=== PATIENT | male | born 1985 | race Caucasian/White ===

== ENCOUNTER → 2019-05-09 | Day surgery (SDC) | payer OTHER ==
[2019-05-08 14:16] LABS: ANION GAP 16.1 mmol/L (8-16); BLOOD UREA NITROGEN 15 mg/dL (7-26); BUN/CREATININE RATIO 19 (6-25); CALCIUM 10.2 mg/dL (8.4-10.2); CARBON DIOXIDE 26 mmol/L (22-29); CHLORIDE 96 mmol/L (98-107); CREATININE, SERUM 0.77 mg/dL (0.72-1.25); EST GLOMERULAR FILTRATION RATE > 60 ML/MIN (60-); GLUCOSE 169 mg/dL (74-118); POTASSIUM 4.1 mmol/L (3.5-5.1); SODIUM 134 mmol/L (136-145)
--- NOTE | 2019-05-08 14:27 | Diagnostic Imaging Report ---
EXAMINATION: CHEST 2 VIEWS INDICATION: Pre-operative COMPARISON: None FINDINGS: LINES/TUBES:None LUNGS:The lungs are well-inflated. No focal consolidation or pulmonary edema. PLEURA:No pleural effusion or pneumothorax. MEDIASTINUM:The cardiomediastinal silhouette appears normal in size and shape. BONES/SOFT TISSUES:No acute osseous injury. ABDOMEN:No free air under the diaphragm. IMPRESSION: No focal pneumonia or pulmonary edema. Signed by: Haley Bentley MD on 05/08/2019 2:23 PM
[~2019-05-09] MED LIST: BUPIVACAINE HCL 0.5% INJ 30 ML VIAL INJ ONE; CEFAZOLIN SOD 1 GM/NS 50ML 50 ML IV ONE; DEXAMETHASONE SOD PHOS INJ 4 MG/ML VIAL ONE; FARXIGA PO; FENTANYL CITRATE/PF 100MCG/2 ML INJ ONE; GABAPENTIN400 MG PO; GLIPIZIDE5 MG PO; IBUPROFEN 800MG/ 250ML 250 ML IV ONE; INSULIN REGULAR, HUMAN 100 UNIT/1 ML 3ML VIAL ONE; KETAMINE HCL INJ 50 MG/ML 10 ML VIAL ONE; LIDOCAINE HCL 2% LOCAL INJ 5 ML SDV VIAL INJ ONE; LISINOPRIL10 MG PO; METFORMIN HCL500 MG PO; MIDAZOLAM HCL 2 MG/2 ML VIAL ONE; NOVOLOG MI100 UNIT/1 SC; OMEPRAZOLE40 MG PO; ONDANSETRON HCL INJ 2MG/ML 2ML 2 MG/ML VIAL ONE; PANTOPRAZOLE SO40 MG PO; PROPOFOL IV EMULSION 10 MG/ML 20 ML VIAL ONE; SEVOFLURANE INHAL SOLN 250 ML PEN BTL ONE; tresiba SC
--- OUTSIDE RECORDS SUMMARY | 2019-05-09 05:17 | XMS REPORT ---
Author Author [facility] Address Unknown Phone Unavailable Care Team Providers Care Carpet Measurer Name Role Phone Toi PEREYRA Unavailable Unavailable Problems This patient has no known problems. Allergies, Adverse Reactions, Alerts This patient has no known allergies or adverse reactions. Medications This patient has no known medications. Results Test Description Test Time Test Comments Text Results Atomic Results Result Comments CHEST 2 VIEWS 2019-05-08 14:21:00 [facility] [address] [address] Patient Name: CECY HERNANDEZ MR #: [id number] : 1985 Age/Sex: 33/M Req #: [id number] Adm Physician: Ordered by: RAS PEREYRA DPM Report #: [id number] Location: OR Room/Bed: Procedure: [id number] DX/CHEST 2 VIEWS Exam Date: 05/08/19 Exam Time: 1330 REPORT STATUS: Signed EXAMINATION: CHEST 2 VIEWS INDICATION: Pre-operative COMPARISON: None FINDINGS: LINES/TUBES:None LUNGS:The lungs are well-inflated. No focal consolidation or pulmonary edema. PLEURA:No pleural effusion or pneumothorax. MEDIASTINUM:The cardiomediastinal silhouette appears normal in size and shape. BONES/SOFT TISSUES:No acute osseous injury. ABDOMEN:No free air under the diaphragm. IMPRESSION: No focal pneumonia or pulmonary edema. Signed by: Argenis Garrett MD on 05/08/2019 2:23 PM Dictated By: ARGENIS GARRETT MD [id number] Transcribed By: MONIKA GAN on 05/08/19 1423 COPY TO: ARS PEREYRA DPM
[2019-05-09 09:10] VITALS: BP 120/84
--- NOTE | 2019-05-09 11:29 | Operative Report ---
DATE OF PROCEDURE: 05/09/2019 SURGEON: Nidhi Da Silva DPM PREOPERATIVE DIAGNOSES: 1. Right Charcot neuroarthropathy. 2. Dislocation of midtarsal joint. SURVEYING TEACHER: None. ANESTHESIA: General with a postoperative block consisting of 20 mL of 0.5% Marcaine plain. HEMOSTASIS: Pneumatic thigh tourniquet set at 350 mmHg for a total time of approximately 30 minutes. MATERIALS: 3-0 Vicryl, 3-0 nylon. ESTIMATED BLOOD LOSS: Less than 10 mL. PATHOLOGY: None. PROCEDURE NOTE: The patient was seen in the preoperative waiting room. The correct procedure and site were identified. The patient was brought to the operating room, placed on the operating table in supine position. General anesthesia was initiated. At this time, a well-padded pneumatic tourniquet was placed about the patient's right thigh. The right foot, ankle, and leg was then scrubbed, prepped, draped in the usual aseptic manner. The right foot, ankle, and leg was exsanguinated with an Esmarch bandage. A pneumatic thigh tourniquet was inflated to 350 mmHg for a total time of approximately 30 minutes. Attention was directed to the right foot, where a large dorsal exostosis with prominence is noted over the 1st and 2nd metatarsal cuneiform as well as a large medial prominence. Utilizing a #15 blade, a 5 cm linear incision was made directly over the 2nd metatarsal cuneiform joint. The incision was carried to subcutaneous tissue, them from deep or underlying structures. All vital neurovascular structures were identified, and retracted medially and laterally. All bleeders were cauterized or ligated as deemed necessary. The incision was carried down to the level of the dislocated middle and medial cuneiform. These were identified and dissected utilizing a #15 blade. Next, utilizing osteotome and mallet as well as a rongeur and a bone rasp, this was smoothed down to anatomic alignment and confirmed via intraoperative fluoroscopy. Next, a second incision was made over the medial aspect of the 1st metatarsal cuneiform joint. The incision was carried to subcutaneous tissue, it from deeper underling structures. All vital neurovascular structures were identified, and retracted medially and laterally. All bleeders were cauterized or ligated as deemed necessary. At this point, utilizing an osteotome and mallet rongeur and a rasp, the dorsal medial eminence of the 1st metatarsal cuneiform joint was also resected and passed off to the back table; this was confirmed via intraoperative fluoroscopy and clinically the bony prominences appeared to be reduced. The both incision sites were copiously irrigated with sterile saline. Deep tissue was reapproximated with 3-0 Vicryl, subcutaneous tissue with 3-0 Vicryl, and the skin was closed using a running interlocking stitch of 3-0 nylon. Next, incision site was dressed with Adaptic, 4x4s, Kerlix, and Unna's boot, Webril, and a 4-inch Brice wrap. The patient tolerated the procedure and anesthesia well. The patient was transferred to the postoperative recovery room with vital signs stable and vascular status intact. The patient was monitored there for a short period of time before being sent home with the following written and oral instructions. 1. Keep the dressing clean, dry, and intact. 2. The patient is to remain nonweightbearing in a CAM walker boot to avoid any ambulation until being seen in the office. 3. The patient is given the office number and instructed to contact us if any problems arise. WON Sears/UMESH /[id number]
== END | disposition home or self-care (01) ==
LOC: OR 05:00
PROVIDERS: ATTEND Podiatrist Foot & Ankle Surgery
DX: M14.671 Charcot's joint, right ankle and foot (principal); S93.314A Dislocation of tarsal joint of right foot, initial encounter; I10 Essential (primary) hypertension; K21.9 Gastro-esophageal reflux disease without esophagitis; E10.9 Type 1 diabetes mellitus without complications; Z88.8 Allergy status to other drugs, medicaments and biological substances; X58.XXXA Exposure to other specified factors, initial encounter; Z01.810 Encounter for preprocedural cardiovascular examination; Z01.812 Encounter for preprocedural laboratory examination; Z01.818 Encounter for other preprocedural examination; Z79.4 Long term (current) use of insulin
CPT/HCPCS: 28122 ×2; 36415 ×2; 71046; 80048; 82948; 93005; J0690; J1100; J2001; J2250; J2405; J2704; J3010; J1817

== ENCOUNTER 2020-12-01 19:27 | Emergency (ER) | payer SELFPAY ==
[~2020-12-01] VITALS: Ht 188 cm; Wt 111.1 kg
[~2020-12-01 19:27] MED LIST changes: -BUPIVACAINE HCL 0.5% INJ 30 ML VIAL INJ ONE; -CEFAZOLIN SOD 1 GM/NS 50ML 50 ML IV ONE; -DEXAMETHASONE SOD PHOS INJ 4 MG/ML VIAL ONE; -FENTANYL CITRATE/PF 100MCG/2 ML INJ ONE; -IBUPROFEN 800MG/ 250ML 250 ML IV ONE; -INSULIN REGULAR, HUMAN 100 UNIT/1 ML 3ML VIAL ONE; -KETAMINE HCL INJ 50 MG/ML 10 ML VIAL ONE; -LIDOCAINE HCL 2% LOCAL INJ 5 ML SDV VIAL INJ ONE; -MIDAZOLAM HCL 2 MG/2 ML VIAL ONE; -ONDANSETRON HCL INJ 2MG/ML 2ML 2 MG/ML VIAL ONE; -PROPOFOL IV EMULSION 10 MG/ML 20 ML VIAL ONE; -SEVOFLURANE INHAL SOLN 250 ML PEN BTL ONE
[2020-12-01 20:30] LABS: BASOPHILS # (AUTO) 0.1 (0.0-0.1); BASOPHILS % 0.7 % (0.0-1.0); EOSINOPHILS # (AUTO) 0.1 (0.0-0.4); HEMATOCRIT 41.5 % (38.2-49.6); HEMOGLOBIN 14.3 g/dL (14.0-18.0); LYMPHOCYTES # (AUTO) 2.1 (1.0-3.2); LYMPHOCYTES % 23.8 % (18.0-39.1); MEAN CORPUSCULAR HEMOGLOBIN 31.8 pg (28-32); MEAN CORPUSCULAR HGB CONC 34.5 g/dL (31-35); MEAN CORPUSCULAR VOLUME 92.4 fL (81-99); MONOCYTES # (AUTO) 0.9 (0.2-0.8); MONOCYTES % 10.4 % (4.4-11.3); NEUTROPHILS # (AUTO) 5.5 (2.1-6.9); NEUTROPHILS % 63.8 % (38.7-80.0); PLATELET COUNT 226 x10e3/uL (140-360); RED BLOOD COUNT 4.49 x10e6/uL (4.3-5.7); RED CELL DISTRIBUTION WIDTH 12.2 % (11.7-14.4)
[2020-12-01 20:39] LABS: INR 0.87; PROTHROMBIN TIME 12.3 seconds (11.9-14.5)
[2020-12-01 20:40] LABS: PARTIAL THROMBOPLASTIN TIME 28.1 seconds (23.8-35.5)
[2020-12-01 20:45] LABS: ALANINE AMINOTRANSFERASE 58 IU/L (0-55); ALKALINE PHOSPHATASE 110 IU/L (40-150); ANION GAP 17.7 mmol/L (8-16); BLOOD UREA NITROGEN 13 mg/dL (7-26); BUN/CREATININE RATIO 16 (6-25); CALCIUM 9.9 mg/dL (8.4-10.2); CARBON DIOXIDE 25 mmol/L (22-29); CHLORIDE 95 mmol/L (98-107); CREATINE KINASE 92 IU/L (30-200); EST GLOMERULAR FILTRATION RATE > 60 ML/MIN (60-); GLUCOSE 213 mg/dL (74-118); POTASSIUM 3.7 mmol/L (3.5-5.1); SODIUM 134 mmol/L (136-145)
[2020-12-01 22:45] LABS: AMPHETAMINES SCREEN,URINE NEGATIVE (NEGATIVE); BENZODIAZEPINES SCREEN,URINE NEGATIVE (NEGATIVE); CLARITY,URINE CLEAR (CLEAR); COLOR,URINE YELLOW (YELLOW); KETONES,URINE 1+ (NEGATIVE); LEUKOCYTE ESTERASE ,URINE NEGATIVE (NEGATIVE); NITRITE,URINE NEGATIVE (NEGATIVE); PHENCYCLIDINE SCREEN,URINE NEGATIVE (NEGATIVE); PROTEIN,URINE DIPSTICK 1+ (NEGATIVE)
[2020-12-01 22:46] LABS: URINE UROBILINOGEN 0.2 mg/dL (0.2 - 1)
[2020-12-01 22:56] LABS: BACTERIA,URINE FEW /HPF; EPITHELIAL CELLS,URINE FEW /LPF; RBC,URINE >50 /HPF (0-5)
[2020-12-01] MEDS ORDERED: SODIUM CHLORIDE 0.9% 50ML 50 ML ONE (23:02)
[2020-12-01] MEDS ORDERED: IOPAMIDOL 370 MG/ML 200 ML INFUS..BTL INJ ONE (23:02)
[2020-12-01 23:29] VITALS: BP 172/105
== END 2020-12-01 23:39 | disposition home or self-care (01) ==
LOC: ER 20:04
DX: R07.89 Other chest pain (principal); R51.9 Headache, unspecified; I10 Essential (primary) hypertension; E11.65 Type 2 diabetes mellitus with hyperglycemia
CPT/HCPCS: 36415; 71045; 71260; 80053; 80307; 81001; 82550; 82553; 84484; 85025; 85379; 85610; 85730; 93005; 99284; Q9967

== ENCOUNTER 2021-12-20 14:01 | Inpatient (IN) | payer OTHER ==
[~2021-12-20] VITALS: Ht 190.5 cm; Wt 125.2 kg
[2021-12-20] VITALS (19 sets, daily range): BP systolic 86–136; BP diastolic 42–120
[~2021-12-20 14:01] MED LIST changes: +ETOMIDATE 2 MG/ML 10 ML INJ IV ONE; +SUCCINYLCHOLINE CHLORIDE 20 MG/ML 10ML VIAL ONE
[2021-12-20] MEDS ORDERED: SODIUM CHLORIDE 0.9% 1000ML 2,000 ML IV ONE (14:15)
[2021-12-20] MEDS ORDERED: Vancomycin IV 1 GM in SODIUM CHLORIDE 0.9% 250ML 250 ML IV ONE (14:15)
[2021-12-20] MEDS ORDERED: SODIUM CHLORIDE 0.9% 1000ML 2,000 ML ONE (14:26)
[2021-12-20 14:29] LABS: RED BLOOD COUNT 3.87 x10e6/uL (4.3-5.7)
[2021-12-20 14:30] LABS: BASOPHILS # (AUTO) 0.1 (0.0-0.1); BASOPHILS % 0.5 % (0.0-1.0); EOSINOPHILS % 0.1 % (0.0-6.0); HEMATOCRIT 38.2 % (38.2-49.6); HEMOGLOBIN 13.1 g/dL (14.0-18.0); LYMPHOCYTES # (AUTO) 0.4 (1.0-3.2); LYMPHOCYTES % 3.6 % (18.0-39.1); MEAN CORPUSCULAR HEMOGLOBIN 33.9 pg (28-32); MEAN CORPUSCULAR HGB CONC 34.3 g/dL (31-35); MEAN CORPUSCULAR VOLUME 98.7 fL (81-99); MONOCYTES # (AUTO) 0.6 (0.2-0.8); MONOCYTES % 5.3 % (4.4-11.3); NEUTROPHILS # (AUTO) 10.6 (2.1-6.9); PLATELET COUNT 87 x10e3/uL (140-360); RED CELL DISTRIBUTION WIDTH 13.2 % (11.7-14.4)
[2021-12-20 14:40] LABS: ABG HCO3 22 mmol/L (22-26); ABG PCO2 38 mmHg (35-45); ABG PH 7.37 (7.35-7.45); ABG PO2 74 mmHg (80-105); ABG TCO2 23
[2021-12-20 14:48] LABS: INR 1.03; PARTIAL THROMBOPLASTIN TIME 37.7 seconds (23.8-35.5); PROTHROMBIN TIME 14.4 seconds (11.9-14.5)
[2021-12-20 14:56] LABS: ALBUMIN 2.5 g/dL (3.5-5.0); ALBUMIN/GLOBULIN RATIO 0.5 (0.8-2.0); ANION GAP 22.9 mmol/L (8-16); CREATININE, SERUM 4.83 mg/dL (0.72-1.25); POTASSIUM 3.9 mmol/L (3.5-5.1)
[2021-12-20 15:01] LABS: CALCIUM 8.1 mg/dL (8.4-10.2)
[2021-12-20 15:03] LABS: CREATINE KINASE MB 3.4 ng/mL (0-5.0)
[2021-12-20] MEDS ORDERED: SODIUM CHLORIDE 0.9% 1000ML 500 ML IV ONE (15:15)
[2021-12-20] MEDS ORDERED: SODIUM CHLORIDE 0.9% 500ML 500 ML ONE ×2 (15:23→16:01)
[2021-12-20] MEDS ORDERED: ACETAMINOPHEN 325 MG TAB PO ONE (15:30)
[2021-12-20] MEDS ORDERED: HEPARIN 25,000 UNIT 1,500 UNIT in DEXTROSE 5% 250ML 250 ML IV SCH (15:45)
[2021-12-20] MEDS ORDERED: ONDANSETRON HCL INJ 2MG/ML 2ML 2 MG/ML VIAL IV PRN (15:45)
[2021-12-20] MEDS ORDERED: SODIUM CHLORIDE 0.9% 500ML 500 ML IV ONE (16:00)
[2021-12-20] MEDS ORDERED: HEPARIN 25,000 UNIT DRIP IV ONE (16:14)
[2021-12-20] MEDS ORDERED: HEPARIN SOD (PORCINE) 5,000 UNIT/ML VIAL ONE (16:21)
[2021-12-20] MEDS: FAMOTIDINE 20 MG/2 ML VIAL IV SCH (16:24)
[2021-12-20] MEDS: SODIUM CHLORIDE 0.9% 1000ML 1,000 ML IV SCH (16:24)
[2021-12-20] MEDS ORDERED: HEPARIN SOD (PORCINE) 5,000 UNIT/ML VIAL IV ONE (16:30)
[2021-12-20] MEDS ORDERED: NOVOLOG100 UNIT/1 SC (17:37)
[2021-12-20] MEDS ORDERED: METOPROLOL TAR100 MG PO (17:40)
[2021-12-20] MEDS ORDERED: LOSARTAN POTASS25 MG PO (17:40)
[2021-12-20] MEDS ORDERED: LEXAPRO10 MG PO (17:40)
[2021-12-20] MEDS ORDERED: MELATONIN 3 MG TAB PO PRN (17:45)
[2021-12-20] MEDS ORDERED: DOCUSATE SODIUM 100 MG CAP PO PRN (17:45)
[2021-12-20] MEDS ORDERED: HYDRALAZINE HCL 20 MG/ML VIAL IV PRN (17:45)
[2021-12-20] MEDS ORDERED: GUAIFENESIN/DEXTROMETHORPHAN LIQD 5 ML UDC PO PRN (17:45)
[2021-12-20] MEDS ORDERED: DEXTROSE 50% SYRINGE 50 ML IV PRN (17:45)
[2021-12-20] MEDS ORDERED: LIDOCAINE HCL 2% LOCAL 20 ML VIAL ONE (19:04)
[2021-12-20] MEDS: INSULIN REGULAR, HUMAN 100 UNIT/1 ML SQ SCH (21:00)
[2021-12-20] MEDS ORDERED: CHLORDIAZEPOXIDE HCL 25 MG CAP PO PRN (21:45)
[2021-12-20] MEDS ORDERED: LORAZEPAM INJ 2 MG/ML VIAL IV PRN (21:45)
[2021-12-20 21:53] LABS: BASOPHILS # (AUTO) 0.1 (0.0-0.1); BASOPHILS % 0.5 % (0.0-1.0); EOSINOPHILS % 0.1 % (0.0-6.0); HEMATOCRIT 34.2 % (38.2-49.6); HEMOGLOBIN 11.5 g/dL (14.0-18.0); LYMPHOCYTES # (AUTO) 0.3 (1.0-3.2); LYMPHOCYTES % 3.1 % (18.0-39.1); MEAN CORPUSCULAR HGB CONC 33.6 g/dL (31-35); MONOCYTES # (AUTO) 0.7 (0.2-0.8); NEUTROPHILS % 88.8 % (38.7-80.0); PLATELET COUNT 70 x10e3/uL (140-360); RED BLOOD COUNT 3.49 x10e6/uL (4.3-5.7); RED CELL DISTRIBUTION WIDTH 13.2 % (11.7-14.4)
[2021-12-20 22:09] LABS: ANION GAP 20.4 mmol/L (8-16); CALCIUM 7.1 mg/dL (8.4-10.2); CREATININE, SERUM 4.78 mg/dL (0.72-1.25); POTASSIUM 4.4 mmol/L (3.5-5.1)
[2021-12-20] MEDS ORDERED: ZIPRASIDONE 20 MG VIAL IM PRN (22:15)
[2021-12-20] MEDS ORDERED: LORAZEPAM INJ 2 MG/ML VIAL ONE (22:18)
[2021-12-21] VITALS (110 sets, daily range): BP systolic 67–178; BP diastolic 34–141
[2021-12-21] MEDS: SODIUM CHLORIDE 0.9% 1000ML 1,000 ML IV SCH ×3 (00:13→21:57)
[2021-12-21 01:14] LABS: ABG HCO3 25 mmol/L (22-26); ABG PCO2 101 mmHg (35-45); ABG PO2 105 mmHg (80-105); ABG TCO2 28
[2021-12-21] MEDS: NOREPINEPHRINE 8 MG/D5W 250 ML 250 ML IV PRN (01:40)
[2021-12-21] MEDS ORDERED: NOREPINEPHRINE 8 MG/D5W 250 ML 250 ML ONE (01:45)
[2021-12-21 02:34] LABS: ABG HCO3 23 mmol/L (22-26); ABG PCO2 64 mmHg (35-45); ABG PH 7.17 (7.35-7.45); ABG PO2 61 mmHg (80-105); ABG TCO2 25
[2021-12-21] MEDS: FAMOTIDINE 20 MG/2 ML VIAL IV SCH ×2 (04:42→15:45)
[2021-12-21 05:13] LABS: BASOPHILS # (AUTO) 0.1 (0.0-0.1); BASOPHILS % 0.5 % (0.0-1.0); HEMATOCRIT 38.1 % (38.2-49.6); HEMOGLOBIN 12.3 g/dL (14.0-18.0); LYMPHOCYTES # (AUTO) 0.4 (1.0-3.2); LYMPHOCYTES % 2.7 % (18.0-39.1); MEAN CORPUSCULAR HEMOGLOBIN 33.1 pg (28-32); MEAN CORPUSCULAR HGB CONC 32.3 g/dL (31-35); MEAN CORPUSCULAR VOLUME 102.4 fL (81-99); MONOCYTES # (AUTO) 1.5 (0.2-0.8); MONOCYTES % 10.4 % (4.4-11.3); NEUTROPHILS % 85.6 % (38.7-80.0); PLATELET COUNT 86 x10e3/uL (140-360); RED BLOOD COUNT 3.72 x10e6/uL (4.3-5.7); RED CELL DISTRIBUTION WIDTH 13.5 % (11.7-14.4)
[2021-12-21 05:34] LABS: ALANINE AMINOTRANSFERASE 70 IU/L (0-55); ALBUMIN 2.2 g/dL (3.5-5.0); ALBUMIN/GLOBULIN RATIO 0.5 (0.8-2.0); ALKALINE PHOSPHATASE 149 IU/L (40-150); ANION GAP 23.4 mmol/L (8-16); CALCIUM 7.3 mg/dL (8.4-10.2); CARBON DIOXIDE 16 mmol/L (22-29); CHLORIDE 98 mmol/L (98-107); GLUCOSE 143 mg/dL (74-118); POTASSIUM 4.4 mmol/L (3.5-5.1); SODIUM 133 mmol/L (136-145)
[2021-12-21 06:22] LABS: BLOOD UREA NITROGEN 74 mg/dL (7-26); BUN/CREATININE RATIO 13 (6-25); CHOLESTEROL 125 MD/DL (0-199); CREATININE, SERUM 5.51 mg/dL (0.72-1.25); EST GLOMERULAR FILTRATION RATE 12 ML/MIN (60-); TRIGLYCERIDES 561 MG/DL (0-149)
[2021-12-21] MEDS ORDERED: FUROSEMIDE INJ 10 MG/ML 4 ML VIAL IV ONE (06:30)
[2021-12-21 06:36] LABS: ABG HCO3 19 mmol/L (22-26); ABG PCO2 48 mmHg (35-45); ABG PO2 269 mmHg (80-105)
[2021-12-21 06:37] LABS: ABG TCO2 20
[2021-12-21 07:12] LABS: HDL CHOLESTEROL < 5 MG/DL (40-60)
[2021-12-21] MEDS ORDERED: MULTIVITAMINS- 12 INJECTION 10 ML, FOLIC ACID MDV 1 MG, THIAMINE HCL INJ 100 MG in SODI... IV ONE (08:00)
[2021-12-21 08:26] LABS: BAND NEUTROPHILS % (MANUAL) 7 %; LYMPHOCYTES % (MANUAL) 4 % (19-48); METAMYELOCYTES % (MANUAL) 4 % (0-0); MONOCYTES % (MANUAL) 7 % (3.4-9.0); NEUTROPHILS % (MANUAL) 78 % (40-74)
[2021-12-21 08:28] LABS: HYPOCHROMASIA SLIGHT; POLYCHROMASIA FEW; RBC MORPHOLOGY COMMENT ABNORMAL
[2021-12-21 08:29] LABS: PLATELET ESTIMATE MODERATELY DECREASED; PLATELET MORPHOLOGY COMMENT FEW LARGE
[2021-12-21 08:43] LABS: CREATINE KINASE MB 4.1 ng/mL (0-5.0)
[2021-12-21] MEDS: THIAMINE HCL 100 MG TAB PO SCH (09:00)
[2021-12-21] MEDS: MULTIVITAMINS/MINERALS TAB PO SCH (09:00)
[2021-12-21] MEDS: FOLIC ACID 1 MG TAB PO SCH (09:00)
[2021-12-21 09:07] LABS: CLARITY,URINE TURBID (CLEAR); COLOR,URINE AMBER (YELLOW); KETONES,URINE 1+ (NEGATIVE); LEUKOCYTE ESTERASE ,URINE NEGATIVE (NEGATIVE); NITRITE,URINE NEGATIVE (NEGATIVE); PROTEIN,URINE DIPSTICK >=300 (NEGATIVE)
[2021-12-21 09:15] LABS: BACTERIA,URINE FEW /HPF; MUCUS,URINE FEW (RARE); RBC,URINE 21-50 /HPF (0-5)
[2021-12-21 10:28] LABS: ABG HCO3 16 mmol/L (22-26); ABG PCO2 49 mmHg (35-45); ABG PH 7.13 (7.35-7.45); ABG PO2 75 mmHg (80-105); ABG TCO2 18
[2021-12-21] MEDS ORDERED: SODIUM BICARBONATE 8.4% SYRING 50 ML ONE (11:29)
[2021-12-21] MEDS: INSULIN REGULAR, HUMAN 100 UNIT/1 ML SQ SCH ×4 (11:30→21:00)
[2021-12-21] MEDS ORDERED: SODIUM BICARBONATE 8.4% INJ 50 ML SYR IV ONE ×2 (11:45→14:30)
[2021-12-21 12:10] LABS: CALCIUM 7.1 mg/dL (8.4-10.2); CREATININE, SERUM 5.9 mg/dL (0.72-1.25)
[2021-12-21] MEDS ORDERED: VASOPRESSIN INJ 20 UNIT/ML VIAL ONE (12:21)
[2021-12-21] MEDS ORDERED: ROCURONIUM BROMIDE 10 MG/ML 5ML VIAL IV ONE (12:21)
[2021-12-21] MEDS ORDERED: POVIDONE IODINE 0.05% 0.05 % ML PO ONE (12:21)
[2021-12-21] MEDS ORDERED: PROPOFOL IV EMULSION 10MG/ML 100 ML ONE (12:22)
[2021-12-21] MEDS ORDERED: FENTANYL 2000MCG/NS 250 250 ML ONE (12:23)
[2021-12-21 12:28] LABS: MAGNESIUM 1.7 MG/DL (1.3-2.1); PHOSPHORUS 9.8 MG/DL (2.3-4.7)
[2021-12-21] MEDS: PROPOFOL IV EMULSION 10MG/ML 100 ML IV SCH ×2 (12:30→19:15)
[2021-12-21] MEDS ORDERED: FUROSEMIDE INJ 100 MG in SODIUM CHLORIDE 0.9% 90 ML IV SCH (12:30)
[2021-12-21] MEDS: FENTANYL 2000MCG/NS 250 250 ML IV SCH (12:38)
[2021-12-21] MEDS ORDERED: MIDAZOLAM HCL 5 MG/ML VIAL ONE (12:44)
[2021-12-21] MEDS: LORAZEPAM INJ 2 MG/ML VIAL IV PRN ×2 (12:45→23:20)
[2021-12-21] MEDS ORDERED: VECURONIUM BROMIDE FOR INJ 20 MG VIAL ONE (12:45)
[2021-12-21] MEDS ORDERED: MIDAZOLAM HCL 2 MG/2 ML VIAL IV ONE (13:00)
[2021-12-21] MEDS: SODIUM BICARBONATE 8.4% 50 ML in SODIUM CHLORIDE 0.45% 1,000 ML IV SCH (13:28)
[2021-12-21] MEDS ORDERED: VECURONIUM BROMIDE FOR INJ 20 MG VIAL IV ONE (13:30)
[2021-12-21 13:48] LABS: ABG HCO3 16 mmol/L (22-26); ABG PCO2 59 mmHg (35-45); ABG PH 7.05 (7.35-7.45); ABG PO2 109 mmHg (80-105); ABG TCO2 18
[2021-12-21] MEDS ORDERED: SODIUM BICARBONATE 8.4% INJ 50 ML SYR IV STA (14:38)
[2021-12-21 14:51] LABS: ABG PCO2 47 mmHg (35-45); ABG PH 7.13 (7.35-7.45)
[2021-12-21 14:52] LABS: ABG HCO3 16 mmol/L (22-26); ABG PO2 57 mmHg (80-105); ABG TCO2 17
[2021-12-21] MEDS ORDERED: DEXTROSE 50% SYRINGE 50 ML IV PRN (15:00)
[2021-12-21] MEDS ORDERED: SODIUM CHLORIDE 0.9% 1000ML 2,000 ML ONE (15:15)
[2021-12-21] MEDS ORDERED: MANNITOL 25% 12.5GM/50ML 100 ML ONE (15:15)
[2021-12-21] MEDS ORDERED: VASOPRESSIN 60 UNIT in DEXTROSE 5% 50ML 57 ML IV PRN (16:30)
[2021-12-21] MEDS ORDERED: NOREPINEPHRINE INJ 4MG/4ML 4 ML ONE (16:49)
[2021-12-21] MEDS ORDERED: CALCIUM CHLORIDE 10% SYRINGE 10 ML IV ONE (16:49)
[2021-12-21] MEDS: INSULIN REGULAR IN 0.9 % NACL 100 ML IV PRN (19:02)
[2021-12-21] MEDS ORDERED: ACETAMINOPHEN 1000 MG/100 ML IV ONE (19:30)
[2021-12-21] MEDS ORDERED: HEPARIN SOD (PORCINE) 1000 UNIT/ML SDV ONE (21:38)
[2021-12-21] MEDS ORDERED: ACETAMINOPHEN 1000 MG/100 ML 100 ML IV ONE (22:34)
[2021-12-21 23:02] LABS: ABG HCO3 20 mmol/L (22-26); ABG PCO2 37 mmHg (35-45); ABG PH 7.33 (7.35-7.45); ABG PO2 236 mmHg (80-105); ABG TCO2 21
[2021-12-21] MEDS ORDERED: Vancomycin IV 750 MG in SODIUM CHLORIDE 0.9% 100 ML 150 ML IV ONE (23:30)
[2021-12-21] MEDS ORDERED: Vancomycin IV 0 MG ONE (23:33)
[2021-12-21] MEDS ORDERED: Vancomycin IV 1 GM VIAL ONE (23:36)
[2021-12-21] MEDS ORDERED: SODIUM CHLORIDE 0.9% 250ML 250 ML ONE (23:37)
[2021-12-22] VITALS (76 sets, daily range): BP systolic 74–151; BP diastolic 39–113
[2021-12-22] MEDS: SODIUM BICARBONATE 8.4% 50 ML in SODIUM CHLORIDE 0.45% 1,000 ML IV SCH (00:25)
[2021-12-22] MEDS: FAMOTIDINE 20 MG/2 ML VIAL IV SCH ×2 (04:30→15:45)
[2021-12-22 05:43] LABS: BASOPHILS % 0.4 % (0.0-1.0); EOSINOPHILS # (AUTO) 0.1 (0.0-0.4); EOSINOPHILS % 1.2 % (0.0-6.0); HEMATOCRIT 33.6 % (38.2-49.6); HEMOGLOBIN 11.3 g/dL (14.0-18.0); LYMPHOCYTES # (AUTO) 0.9 (1.0-3.2); MEAN CORPUSCULAR HEMOGLOBIN 32.9 pg (28-32); MEAN CORPUSCULAR HGB CONC 33.6 g/dL (31-35); MONOCYTES # (AUTO) 1.1 (0.2-0.8); MONOCYTES % 14.7 % (4.4-11.3); NEUTROPHILS # (AUTO) 5.1 (2.1-6.9); NEUTROPHILS % 70.3 % (38.7-80.0); PLATELET COUNT 83 x10e3/uL (140-360); RED BLOOD COUNT 3.43 x10e6/uL (4.3-5.7); RED CELL DISTRIBUTION WIDTH 13.3 % (11.7-14.4)
[2021-12-22 06:02] LABS: ALBUMIN 1.7 g/dL (3.5-5.0); ALBUMIN/GLOBULIN RATIO 0.4 (0.8-2.0); ANION GAP 25.5 mmol/L (8-16); CALCIUM 7.5 mg/dL (8.4-10.2); CREATININE, SERUM 5.31 mg/dL (0.72-1.25); MAGNESIUM 1.7 MG/DL (1.3-2.1); PHOSPHORUS 6.5 MG/DL (2.3-4.7); POTASSIUM 3.5 mmol/L (3.5-5.1)
[2021-12-22 06:30] LABS: FREE THYROXINE INDEX 0.9886 (1.4-3.8); THYROID STIMULATING HORMONE 1.358 uIU/mL (0.350-4.940)
[2021-12-22] MEDS: FENTANYL 2000MCG/NS 250 250 ML IV SCH (07:37)
[2021-12-22] MEDS: NOREPINEPHRINE 8 MG/D5W 250 ML 250 ML IV PRN ×4 (07:41→21:18)
[2021-12-22] MEDS: INSULIN REGULAR IN 0.9 % NACL 100 ML IV PRN ×3 (07:45→20:24)
[2021-12-22] MEDS ORDERED: MANNITOL 25% 12.5GM/50 ML VIAL IV PRN (08:00)
[2021-12-22] MEDS ORDERED: HEPARIN SOD (PORCINE) 1000 UNIT/ML SDV IV PRN (08:00)
[2021-12-22] MEDS ORDERED: SODIUM CHLORIDE 0.9% 1000ML 2,000 ML IV PRN (08:00)
[2021-12-22 09:00] LABS: BAND NEUTROPHILS % (MANUAL) 2 %; EOSINOPHILS % (MANUAL) 1 % (0-7); LYMPHOCYTES % (MANUAL) 10 % (19-48); MONOCYTES % (MANUAL) 11 % (3.4-9.0); MYELOCYTES % (MANUAL) 1 % (0-0); NEUTROPHILS % (MANUAL) 74 % (40-74); PLATELET ESTIMATE MODERATELY DECREASED; PROMYELOCYTES % (MANUAL) 1 % (0-0)
[2021-12-22] MEDS ORDERED: HEPARIN SOD (PORCINE) 5,000 UNIT/ML VIAL SC SCH (09:00)
[2021-12-22 09:01] LABS: PLATELET MORPHOLOGY COMMENT NORMAL; RBC MORPHOLOGY COMMENT NORMAL
[2021-12-22 09:33] LABS: ABG PCO2 36 mmHg (35-45); ABG PO2 104 mmHg (80-105)
[2021-12-22 09:34] LABS: ABG HCO3 22 mmol/L (22-26); ABG TCO2 23
[2021-12-22] MEDS ORDERED: Vancomycin IV 1 GM in SODIUM CHLORIDE 0.9% 250ML 250 ML IV ONE (11:00)
[2021-12-22] MEDS: SODIUM CHLORIDE 0.9% 1000ML 1,000 ML IV SCH (11:17)
[2021-12-22] MEDS: HEPARIN SOD (PORCINE) 5,000 UNIT/ML VIAL SC SCH ×2 (11:26→21:28)
[2021-12-22] MEDS: FOLIC ACID 1 MG TAB PO SCH (11:26)
[2021-12-22] MEDS: THIAMINE HCL 100 MG TAB PO SCH (11:26)
[2021-12-22] MEDS: MULTIVITAMINS/MINERALS TAB PO SCH (11:26)
[2021-12-22] MEDS: ACETAMINOPHEN 325 MG TAB PO PRN ×4 (11:28→22:23)
[2021-12-22] MEDS: PROPOFOL IV EMULSION 10MG/ML 100 ML IV SCH ×3 (11:29→21:48)
[2021-12-22] MEDS ORDERED: DEXTROSE 5% IV SCH (12:00)
[2021-12-22] MEDS ORDERED: CLINDAMYCIN IV SCH (12:00)
[2021-12-22] MEDS: LORAZEPAM INJ 2 MG/ML VIAL IV PRN (14:30)
[2021-12-23] VITALS (99 sets, daily range): BP systolic 61–152; BP diastolic 40–100
[2021-12-23] MEDS: FENTANYL 2000MCG/NS 250 250 ML IV SCH ×3 (00:50→23:45)
[2021-12-23] MEDS: INSULIN REGULAR IN 0.9 % NACL 100 ML IV PRN ×3 (00:51→17:55)
[2021-12-23] MEDS: PROPOFOL IV EMULSION 10MG/ML 100 ML IV SCH ×5 (01:35→22:33)
[2021-12-23] MEDS: NOREPINEPHRINE 8 MG/D5W 250 ML 250 ML IV PRN ×2 (02:01→03:33)
[2021-12-23] MEDS: FAMOTIDINE 20 MG/2 ML VIAL IV SCH ×2 (03:54→15:45)
[2021-12-23] MEDS: SODIUM CHLORIDE 0.9% 1000ML 1,000 ML IV SCH (05:26)
[2021-12-23 07:52] LABS: ABG HCO3 24 mmol/L (22-26); ABG PCO2 37 mmHg (35-45); ABG PH 7.42 (7.35-7.45); ABG PO2 92 mmHg (80-105)
[2021-12-23 07:53] LABS: ABG TCO2 25
[2021-12-23 08:54] LABS: BASOPHILS % 0.4 % (0.0-1.0); EOSINOPHILS # (AUTO) 0.1 (0.0-0.4); EOSINOPHILS % 1.8 % (0.0-6.0); HEMATOCRIT 31.7 % (38.2-49.6); HEMOGLOBIN 10.8 g/dL (14.0-18.0); LYMPHOCYTES # (AUTO) 0.9 (1.0-3.2); LYMPHOCYTES % 13.3 % (18.0-39.1); MEAN CORPUSCULAR HEMOGLOBIN 33.2 pg (28-32); MEAN CORPUSCULAR HGB CONC 34.1 g/dL (31-35); MEAN CORPUSCULAR VOLUME 97.5 fL (81-99); MONOCYTES % 15.3 % (4.4-11.3); NEUTROPHILS # (AUTO) 4.5 (2.1-6.9); NEUTROPHILS % 67.7 % (38.7-80.0); PLATELET COUNT 83 x10e3/uL (140-360); RED BLOOD COUNT 3.25 x10e6/uL (4.3-5.7); RED CELL DISTRIBUTION WIDTH 13.8 % (11.7-14.4)
[2021-12-23 09:18] LABS: ALBUMIN 1.5 g/dL (3.5-5.0); ALBUMIN/GLOBULIN RATIO 0.3 (0.8-2.0); ANION GAP 18.2 mmol/L (8-16); CALCIUM 7.2 mg/dL (8.4-10.2); CREATININE, SERUM 2.36 mg/dL (0.72-1.25); POTASSIUM 3.2 mmol/L (3.5-5.1)
[2021-12-23] MEDS: THIAMINE HCL 100 MG TAB PO SCH (09:27)
[2021-12-23] MEDS: MULTIVITAMINS/MINERALS TAB PO SCH (09:27)
[2021-12-23] MEDS: FOLIC ACID 1 MG TAB PO SCH (09:27)
[2021-12-23] MEDS: HEPARIN SOD (PORCINE) 5,000 UNIT/ML VIAL SC SCH ×2 (09:34→21:11)
[2021-12-23] MEDS: LORAZEPAM INJ 2 MG/ML VIAL IV PRN (10:42)
[2021-12-23] MEDS ORDERED: POTASSIUM CHLORIDE 20MEQ/100ML 100 ML IV ONE (12:30)
[2021-12-23] MEDS: COLLAGENASE OINTMENT 30 GM TUBE TP SCH (13:30)
[2021-12-23] MEDS ORDERED: Vancomycin IV 1 GM in SODIUM CHLORIDE 0.9% 250ML 250 ML IV SCH (14:00)
[2021-12-23] MEDS ORDERED: CALCIUM CHLORIDE 13.6 MEQ in SODIUM CHLORIDE 0.9% 100 ML IV ONE (15:35)
[2021-12-23] MEDS ORDERED: LACTATED RINGER'S 1,000 ML INJ SCH (15:45)
[2021-12-23] MEDS ORDERED: LORAZEPAM INJ 2 MG/ML VIAL IV ONE (18:35)
[2021-12-23] MEDS: LACTATED RINGER'S 1,000 ML INJ SCH (20:01)
[2021-12-24] VITALS (69 sets, daily range): BP systolic 82–189; BP diastolic 41–87
[2021-12-24] MEDS: PROPOFOL IV EMULSION 10MG/ML 100 ML IV SCH ×8 (01:33→20:00)
[2021-12-24] MEDS: ACETAMINOPHEN 325 MG TAB PO PRN (03:35)
[2021-12-24] MEDS: FAMOTIDINE 20 MG/2 ML VIAL IV SCH ×2 (03:42→16:04)
[2021-12-24] MEDS: LACTATED RINGER'S 1,000 ML INJ SCH ×2 (05:27→19:57)
[2021-12-24] MEDS: FENTANYL 2000MCG/NS 250 250 ML IV SCH ×2 (05:28→21:10)
[2021-12-24 05:40] LABS: BASOPHILS % 0.6 % (0.0-1.0); EOSINOPHILS # (AUTO) 0.1 (0.0-0.4); EOSINOPHILS % 1.6 % (0.0-6.0); HEMATOCRIT 32.9 % (38.2-49.6); HEMOGLOBIN 10.9 g/dL (14.0-18.0); LYMPHOCYTES # (AUTO) 0.6 (1.0-3.2); LYMPHOCYTES % 8.1 % (18.0-39.1); MEAN CORPUSCULAR HGB CONC 33.1 g/dL (31-35); MEAN CORPUSCULAR VOLUME 99.7 fL (81-99); MONOCYTES # (AUTO) 0.8 (0.2-0.8); MONOCYTES % 11.8 % (4.4-11.3); NEUTROPHILS # (AUTO) 5.4 (2.1-6.9); NEUTROPHILS % 76.5 % (38.7-80.0); PLATELET COUNT 110 x10e3/uL (140-360); RED CELL DISTRIBUTION WIDTH 14.1 % (11.7-14.4)
[2021-12-24 05:54] LABS: ALBUMIN 1.4 g/dL (3.5-5.0); ALBUMIN/GLOBULIN RATIO 0.3 (0.8-2.0); ANION GAP 16.7 mmol/L (8-16); CALCIUM 7.9 mg/dL (8.4-10.2); CREATININE, SERUM 1.48 mg/dL (0.72-1.25); POTASSIUM 3.7 mmol/L (3.5-5.1)
[2021-12-24 07:21] LABS: ABG PCO2 37 mmHg (35-45); ABG PH 7.42 (7.35-7.45)
[2021-12-24 07:22] LABS: ABG HCO3 24 mmol/L (22-26); ABG PO2 147 mmHg (80-105); ABG TCO2 25
[2021-12-24] MEDS: FOLIC ACID 1 MG TAB PO SCH (09:18)
[2021-12-24] MEDS: MULTIVITAMINS/MINERALS TAB PO SCH (09:18)
[2021-12-24] MEDS: THIAMINE HCL 100 MG TAB PO SCH (09:19)
[2021-12-24] MEDS: HEPARIN SOD (PORCINE) 5,000 UNIT/ML VIAL SC SCH ×2 (09:19→20:03)
[2021-12-24] MEDS: COLLAGENASE OINTMENT 30 GM TUBE TP SCH (10:10)
[2021-12-24] MEDS ORDERED: MIDAZOLAM HCL 2 MG/2 ML VIAL IV ONE ×3 (10:58→11:20)
[2021-12-24] MEDS ORDERED: ACETAMINOPHEN 1000 MG/100 ML IV SCH (12:00)
[2021-12-24 15:27] LABS: ABG HCO3 24 mmol/L (22-26); ABG PCO2 42 mmHg (35-45); ABG PH 7.37 (7.35-7.45); ABG PO2 81 mmHg (80-105); ABG TCO2 25
[2021-12-24] MEDS: IBUPROFEN 800MG/ 200ML 200 ML IV PRN (15:42)
[2021-12-24] MEDS: LORAZEPAM INJ 2 MG/ML VIAL IV PRN (16:40)
[2021-12-24] MEDS: ACETAMINOPHEN 1000 MG/100 ML IV PRN (17:05)
[2021-12-24] MEDS: NOREPINEPHRINE 8 MG/D5W 250 ML 250 ML IV PRN (19:59)
[2021-12-25] VITALS (87 sets, daily range): BP systolic 98–180; BP diastolic 47–110
[2021-12-25] MEDS: ACETAMINOPHEN 1000 MG/100 ML IV PRN (00:23)
[2021-12-25] MEDS: PROPOFOL IV EMULSION 10MG/ML 100 ML IV SCH ×9 (00:24→20:23)
[2021-12-25] MEDS: IBUPROFEN 800MG/ 200ML 200 ML IV PRN ×3 (01:51→21:29)
[2021-12-25] MEDS: FENTANYL 2000MCG/NS 250 250 ML IV SCH ×3 (03:42→20:24)
[2021-12-25] MEDS: FAMOTIDINE 20 MG/2 ML VIAL IV SCH ×2 (04:16→15:49)
[2021-12-25 05:55] LABS: BASOPHILS # (AUTO) 0.1 (0.0-0.1); BASOPHILS % 0.6 % (0.0-1.0); EOSINOPHILS # (AUTO) 0.1 (0.0-0.4); EOSINOPHILS % 1.3 % (0.0-6.0); HEMATOCRIT 34.3 % (38.2-49.6); HEMOGLOBIN 11.2 g/dL (14.0-18.0); LYMPHOCYTES # (AUTO) 0.9 (1.0-3.2); LYMPHOCYTES % 8.8 % (18.0-39.1); MEAN CORPUSCULAR HGB CONC 32.7 g/dL (31-35); MEAN CORPUSCULAR VOLUME 101.2 fL (81-99); MONOCYTES # (AUTO) 1.1 (0.2-0.8); MONOCYTES % 11.5 % (4.4-11.3); NEUTROPHILS # (AUTO) 7.6 (2.1-6.9); NEUTROPHILS % 76.2 % (38.7-80.0); PLATELET COUNT 186 x10e3/uL (140-360); RED BLOOD COUNT 3.39 x10e6/uL (4.3-5.7); RED CELL DISTRIBUTION WIDTH 14.2 % (11.7-14.4)
[2021-12-25 06:21] LABS: ALBUMIN 1.4 g/dL (3.5-5.0); ALBUMIN/GLOBULIN RATIO 0.3 (0.8-2.0); CALCIUM 7.9 mg/dL (8.4-10.2); CREATININE, SERUM 1.27 mg/dL (0.72-1.25)
[2021-12-25 08:04] LABS: ABG HCO3 26 mmol/L (22-26); ABG PCO2 43 mmHg (35-45); ABG PH 7.38 (7.35-7.45); ABG PO2 97 mmHg (80-105)
[2021-12-25 08:05] LABS: ABG TCO2 27
[2021-12-25] MEDS: COLLAGENASE OINTMENT 30 GM TUBE TP SCH (09:00)
[2021-12-25] MEDS: LACTATED RINGER'S 1,000 ML INJ SCH (09:16)
[2021-12-25] MEDS: THIAMINE HCL 100 MG TAB PO SCH (09:16)
[2021-12-25] MEDS: MULTIVITAMINS/MINERALS TAB PO SCH (09:16)
[2021-12-25] MEDS: FOLIC ACID 1 MG TAB PO SCH (09:16)
[2021-12-25] MEDS: HEPARIN SOD (PORCINE) 5,000 UNIT/ML VIAL SC SCH ×2 (09:18→20:15)
[2021-12-25] MEDS: NOREPINEPHRINE 8 MG/D5W 250 ML 250 ML IV PRN (09:19)
[2021-12-25] MEDS ORDERED: ACETAMINOPHEN 1000 MG/100 ML IV PRN (12:00)
[2021-12-25] MEDS ORDERED: ALBUMIN 25% 25GM 100ML 0.25 GM/ML BTL IV SCH (12:00)
[2021-12-25] MEDS: FUROSEMIDE INJ 10 MG/ML 4 ML VIAL IV SCH ×2 (12:43→20:15)
[2021-12-25] MEDS: ALBUMIN 25% 25GM 100ML 100 ML IV SCH ×2 (12:43→20:15)
[2021-12-25] MEDS: LORAZEPAM INJ 2 MG/ML VIAL IV PRN ×2 (15:30→19:33)
[2021-12-25] MEDS: LINEZOLID 600 MG/D5W 300ML 300 ML IV SCH (16:58)
[2021-12-25] MEDS: CHLORDIAZEPOXIDE HCL 25 MG CAP NG SCH (21:03)
[2021-12-25] MEDS ORDERED: CHLORDIAZEPOXIDE HCL 25 MG CAP PO SCH (22:00)
[2021-12-26] VITALS (87 sets, daily range): BP systolic 82–234; BP diastolic 41–123
[2021-12-26] MEDS: PROPOFOL IV EMULSION 10MG/ML 100 ML IV SCH ×8 (00:15→21:13)
[2021-12-26] MEDS: FENTANYL 2000MCG/NS 250 250 ML IV SCH ×3 (04:45→23:56)
[2021-12-26] MEDS: FAMOTIDINE 20 MG/2 ML VIAL IV SCH ×2 (04:54→14:34)
[2021-12-26] MEDS: LINEZOLID 600 MG/D5W 300ML 300 ML IV SCH ×2 (04:54→16:12)
[2021-12-26] MEDS: CHLORDIAZEPOXIDE HCL 25 MG CAP NG SCH (05:09)
[2021-12-26 05:57] LABS: BASOPHILS # (AUTO) 0.1 (0.0-0.1); BASOPHILS % 0.4 % (0.0-1.0); EOSINOPHILS # (AUTO) 0.1 (0.0-0.4); EOSINOPHILS % 0.9 % (0.0-6.0); HEMATOCRIT 34.1 % (38.2-49.6); HEMOGLOBIN 11.1 g/dL (14.0-18.0); LYMPHOCYTES % 8.4 % (18.0-39.1); MEAN CORPUSCULAR HEMOGLOBIN 32.6 pg (28-32); MEAN CORPUSCULAR HGB CONC 32.6 g/dL (31-35); MONOCYTES % 8.5 % (4.4-11.3); NEUTROPHILS # (AUTO) 9.5 (2.1-6.9); NEUTROPHILS % 80.4 % (38.7-80.0); PLATELET COUNT 230 x10e3/uL (140-360); RED BLOOD COUNT 3.41 x10e6/uL (4.3-5.7); RED CELL DISTRIBUTION WIDTH 13.8 % (11.7-14.4)
[2021-12-26 06:17] LABS: ALBUMIN 1.8 g/dL (3.5-5.0); ALBUMIN/GLOBULIN RATIO 0.4 (0.8-2.0); ANION GAP 14.9 mmol/L (8-16); CALCIUM 8.2 mg/dL (8.4-10.2); CREATININE, SERUM 1.2 mg/dL (0.72-1.25); POTASSIUM 3.9 mmol/L (3.5-5.1)
[2021-12-26 07:59] LABS: ABG HCO3 28 mmol/L (22-26); ABG PCO2 44 mmHg (35-45); ABG PH 7.42 (7.35-7.45); ABG PO2 75 mmHg (80-105); ABG TCO2 30
[2021-12-26] MEDS ORDERED: DEXTROSE 50% SYRINGE 50 ML IV PRN (08:00)
[2021-12-26] MEDS ORDERED: LORAZEPAM INJ 2 MG/ML VIAL IV PRN (08:00)
[2021-12-26] MEDS: FOLIC ACID 1 MG TAB PO SCH (08:13)
[2021-12-26] MEDS: MULTIVITAMINS/MINERALS TAB PO SCH (08:13)
[2021-12-26] MEDS: THIAMINE HCL 100 MG TAB PO SCH (08:14)
[2021-12-26] MEDS: HEPARIN SOD (PORCINE) 5,000 UNIT/ML VIAL SC SCH ×2 (08:15→21:17)
[2021-12-26] MEDS ORDERED: CEFTRIAXONE 1 GM VIAL ONE (08:18)
[2021-12-26] MEDS ORDERED: LORAZEPAM INJ 2 MG/ML VIAL IV ONE (08:30)
[2021-12-26] MEDS ORDERED: FUROSEMIDE INJ 10 MG/ML 4 ML VIAL IV ONE (08:30)
[2021-12-26] MEDS: COLLAGENASE 5 GM TUBE TP SCH (11:14)
[2021-12-26] MEDS: IBUPROFEN 800MG/ 200ML 200 ML IV PRN (11:15)
[2021-12-26] MEDS: LORAZEPAM INJ 2 MG/ML VIAL IV SCH ×5 (11:56→23:55)
[2021-12-26] MEDS: NEOMYCIN/POLYMYXIN/BACITRACIN 15 GM TUBE TOP SCH ×2 (13:28→17:30)
[2021-12-26] MEDS: INSULIN REGULAR, HUMAN 3ML VL 100 UNIT in SODIUM CHLORIDE 0.9% 99 ML IV SCH ×4 (17:31→21:30)
[2021-12-27] VITALS (90 sets, daily range): BP systolic 73–145; BP diastolic 32–90
[2021-12-27] MEDS: INSULIN REGULAR, HUMAN 3ML VL 100 UNIT in SODIUM CHLORIDE 0.9% 99 ML IV SCH ×4 (01:15→05:13)
[2021-12-27] MEDS: LORAZEPAM INJ 2 MG/ML VIAL IV SCH ×7 (02:30→20:49)
[2021-12-27] MEDS: NOREPINEPHRINE 8 MG/D5W 250 ML 250 ML IV PRN (02:53)
[2021-12-27] MEDS: PROPOFOL IV EMULSION 10MG/ML 100 ML IV SCH ×6 (03:03→21:41)
[2021-12-27] MEDS: FAMOTIDINE 20 MG/2 ML VIAL IV SCH ×2 (03:55→16:23)
[2021-12-27] MEDS: LINEZOLID 600 MG/D5W 300ML 300 ML IV SCH ×2 (04:33→17:12)
[2021-12-27 05:10] LABS: BASOPHILS % 0.2 % (0.0-1.0); EOSINOPHILS # (AUTO) 0.2 (0.0-0.4); EOSINOPHILS % 1.1 % (0.0-6.0); HEMOGLOBIN 11.3 g/dL (14.0-18.0); LYMPHOCYTES % 7.5 % (18.0-39.1); MEAN CORPUSCULAR HEMOGLOBIN 33.1 pg (28-32); MEAN CORPUSCULAR HGB CONC 33.2 g/dL (31-35); MEAN CORPUSCULAR VOLUME 99.7 fL (81-99); MONOCYTES # (AUTO) 1.1 (0.2-0.8); MONOCYTES % 7.9 % (4.4-11.3); NEUTROPHILS # (AUTO) 11.3 (2.1-6.9); NEUTROPHILS % 82.1 % (38.7-80.0); PLATELET COUNT 233 x10e3/uL (140-360); RED BLOOD COUNT 3.41 x10e6/uL (4.3-5.7); RED CELL DISTRIBUTION WIDTH 13.9 % (11.7-14.4)
[2021-12-27 05:38] LABS: ALBUMIN 1.5 g/dL (3.5-5.0); ALBUMIN/GLOBULIN RATIO 0.3 (0.8-2.0); ANION GAP 15.3 mmol/L (8-16); CREATININE, SERUM 0.94 mg/dL (0.72-1.25); POTASSIUM 4.3 mmol/L (3.5-5.1)
[2021-12-27 08:04] LABS: BAND NEUTROPHILS % (MANUAL) 4 %; EOSINOPHILS % (MANUAL) 1 % (0-7); LYMPHOCYTES % (MANUAL) 2 % (19-48); MONOCYTES % (MANUAL) 3 % (3.4-9.0); NEUTROPHILS % (MANUAL) 90 % (40-74); PLATELET ESTIMATE ADEQUATE; PLATELET MORPHOLOGY COMMENT NORMAL; RBC MORPHOLOGY COMMENT NORMAL
[2021-12-27] MEDS: MULTIVITAMINS/MINERALS TAB PO SCH (08:09)
[2021-12-27] MEDS: FOLIC ACID 1 MG TAB PO SCH (08:09)
[2021-12-27] MEDS: THIAMINE HCL 100 MG TAB PO SCH (08:09)
[2021-12-27] MEDS: NEOMYCIN/POLYMYXIN/BACITRACIN 15 GM TUBE TOP SCH ×2 (08:10→17:17)
[2021-12-27] MEDS: HEPARIN SOD (PORCINE) 5,000 UNIT/ML VIAL SC SCH ×2 (08:10→20:50)
[2021-12-27] MEDS: COLLAGENASE 5 GM TUBE TP SCH (08:10)
[2021-12-27 08:21] LABS: ABG HCO3 28 mmol/L (22-26); ABG PCO2 45 mmHg (35-45); ABG PH 7.41 (7.35-7.45); ABG PO2 74 mmHg (80-105); ABG TCO2 30
[2021-12-27] MEDS: FENTANYL 2000MCG/NS 250 250 ML IV SCH ×2 (09:55→19:29)
[2021-12-27] MEDS ORDERED: FLUCONAZOLE 200 MG/100 ML 100 ML IV SCH (10:45)
[2021-12-27] MEDS: FUROSEMIDE INJ 10 MG/ML 4 ML VIAL IV SCH ×2 (11:08→17:00)
[2021-12-27] MEDS: DAPTOMYCIN 500mg 10ML 500 MG in SODIUM CHLORIDE 0.9% 100 ML IV SCH (14:11)
[2021-12-27] MEDS: LORAZEPAM INJ 2 MG/ML VIAL IV PRN (15:19)
[2021-12-27] MEDS: IBUPROFEN 800MG/ 200ML 200 ML IV PRN ×2 (15:27→21:30)
[2021-12-27] MEDS: ACETAMINOPHEN 1000 MG/100 ML IV SCH ×2 (16:22→17:13)
[2021-12-27] MEDS ORDERED: SODIUM CHLORIDE 0.9% 100 ML ONE (20:45)
[2021-12-28] VITALS (77 sets, daily range): BP systolic 92–122; BP diastolic 45–71
[2021-12-28] MEDS: ACETAMINOPHEN 1000 MG/100 ML IV SCH ×4 (00:10→17:35)
[2021-12-28] MEDS: LORAZEPAM INJ 2 MG/ML VIAL IV SCH ×9 (00:10→23:31)
[2021-12-28] MEDS: PROPOFOL IV EMULSION 10MG/ML 100 ML IV SCH ×6 (02:15→20:12)
[2021-12-28] MEDS: FENTANYL 2000MCG/NS 250 250 ML IV SCH ×3 (04:00→20:15)
[2021-12-28] MEDS: LINEZOLID 600 MG/D5W 300ML 300 ML IV SCH ×2 (04:04→16:18)
[2021-12-28] MEDS: FAMOTIDINE 20 MG/2 ML VIAL IV SCH ×2 (04:04→16:18)
[2021-12-28 05:44] LABS: BASOPHILS # (AUTO) 0.1 (0.0-0.1); BASOPHILS % 0.3 % (0.0-1.0); EOSINOPHILS # (AUTO) 0.2 (0.0-0.4); EOSINOPHILS % 1.4 % (0.0-6.0); HEMATOCRIT 32.7 % (38.2-49.6); HEMOGLOBIN 10.7 g/dL (14.0-18.0); LYMPHOCYTES # (AUTO) 1.5 (1.0-3.2); LYMPHOCYTES % 9.3 % (18.0-39.1); MEAN CORPUSCULAR HEMOGLOBIN 32.8 pg (28-32); MEAN CORPUSCULAR HGB CONC 32.7 g/dL (31-35); MEAN CORPUSCULAR VOLUME 100.3 fL (81-99); MONOCYTES # (AUTO) 1.3 (0.2-0.8); MONOCYTES % 7.9 % (4.4-11.3); NEUTROPHILS # (AUTO) 12.9 (2.1-6.9); NEUTROPHILS % 79.9 % (38.7-80.0); PLATELET COUNT 293 x10e3/uL (140-360); RED BLOOD COUNT 3.26 x10e6/uL (4.3-5.7); RED CELL DISTRIBUTION WIDTH 14.2 % (11.7-14.4)
[2021-12-28 06:01] LABS: ALBUMIN 1.4 g/dL (3.5-5.0); ALBUMIN/GLOBULIN RATIO 0.3 (0.8-2.0); CALCIUM 7.8 mg/dL (8.4-10.2); CREATININE, SERUM 2.01 mg/dL (0.72-1.25)
[2021-12-28 08:21] LABS: ABG PCO2 50 mmHg (35-45); ABG PH 7.37 (7.35-7.45)
[2021-12-28 08:22] LABS: ABG HCO3 29 mmol/L (22-26); ABG PO2 72 mmHg (80-105); ABG TCO2 31
[2021-12-28] MEDS: COLLAGENASE 5 GM TUBE TP SCH (08:57)
[2021-12-28] MEDS: THIAMINE HCL 100 MG TAB PO SCH (08:57)
[2021-12-28] MEDS: NEOMYCIN/POLYMYXIN/BACITRACIN 15 GM TUBE TOP SCH ×2 (08:57→16:20)
[2021-12-28] MEDS: MULTIVITAMINS/MINERALS TAB PO SCH (08:57)
[2021-12-28] MEDS: FUROSEMIDE INJ 10 MG/ML 4 ML VIAL IV SCH (08:57)
[2021-12-28] MEDS: FOLIC ACID 1 MG TAB PO SCH (08:57)
[2021-12-28 09:01] LABS: LYMPHOCYTES % (MANUAL) 10 % (19-48); MONOCYTES % (MANUAL) 2 % (3.4-9.0); MYELOCYTES % (MANUAL) 1 % (0-0); NEUTROPHILS % (MANUAL) 87 % (40-74)
[2021-12-28 09:02] LABS: PLATELET ESTIMATE ADEQUATE; PLATELET MORPHOLOGY COMMENT FEW LARGE; RBC MORPHOLOGY COMMENT NORMAL
[2021-12-28] MEDS: HEPARIN SOD (PORCINE) 5,000 UNIT/ML VIAL SC SCH ×2 (09:03→20:16)
[2021-12-28] MEDS: DAPTOMYCIN 500mg 10ML 500 MG in SODIUM CHLORIDE 0.9% 100 ML IV SCH (14:36)
[2021-12-28] MEDS ORDERED: PROPOFOL IV EMULSION 10MG/ML 200 ML ONE (15:51)
[2021-12-29] VITALS (76 sets, daily range): BP systolic 56–120; BP diastolic 18–96
[2021-12-29] MEDS ORDERED: SODIUM CHLORIDE 0.9% 250ML 250 ML ONE (01:39)
[2021-12-29] MEDS: PROPOFOL IV EMULSION 10MG/ML 100 ML IV SCH ×10 (01:52→20:41)
[2021-12-29] MEDS: NOREPINEPHRINE 8 MG/D5W 250 ML 250 ML IV PRN (01:53)
[2021-12-29] MEDS: LORAZEPAM INJ 2 MG/ML VIAL IV SCH ×8 (02:48→23:44)
[2021-12-29] MEDS: LINEZOLID 600 MG/D5W 300ML 300 ML IV SCH ×2 (03:55→16:16)
[2021-12-29] MEDS: FAMOTIDINE 20 MG/2 ML VIAL IV SCH ×2 (03:55→16:16)
[2021-12-29] MEDS: FENTANYL 2000MCG/NS 250 250 ML IV SCH ×3 (03:56→21:50)
[2021-12-29 05:24] LABS: BASOPHILS # (AUTO) 0.1 (0.0-0.1); BASOPHILS % 0.4 % (0.0-1.0); EOSINOPHILS # (AUTO) 0.2 (0.0-0.4); EOSINOPHILS % 1.3 % (0.0-6.0); HEMATOCRIT 32.4 % (38.2-49.6); HEMOGLOBIN 10.5 g/dL (14.0-18.0); LYMPHOCYTES # (AUTO) 1.2 (1.0-3.2); MEAN CORPUSCULAR HEMOGLOBIN 32.8 pg (28-32); MEAN CORPUSCULAR HGB CONC 32.4 g/dL (31-35); MEAN CORPUSCULAR VOLUME 101.3 fL (81-99); MONOCYTES # (AUTO) 1.1 (0.2-0.8); MONOCYTES % 6.6 % (4.4-11.3); NEUTROPHILS % 83.3 % (38.7-80.0); PLATELET COUNT 286 x10e3/uL (140-360)
[2021-12-29] MEDS: ACETAMINOPHEN 325 MG TAB PO PRN (05:43)
[2021-12-29 05:59] LABS: ALBUMIN 1.3 g/dL (3.5-5.0); ALBUMIN/GLOBULIN RATIO 0.3 (0.8-2.0); ANION GAP 18.6 mmol/L (8-16); CALCIUM 7.7 mg/dL (8.4-10.2); CREATININE, SERUM 2.04 mg/dL (0.72-1.25); POTASSIUM 4.6 mmol/L (3.5-5.1)
[2021-12-29] MEDS: FOLIC ACID 1 MG TAB PO SCH (08:26)
[2021-12-29] MEDS: NEOMYCIN/POLYMYXIN/BACITRACIN 15 GM TUBE TOP SCH ×2 (08:26→16:16)
[2021-12-29] MEDS: MULTIVITAMINS/MINERALS TAB PO SCH (08:26)
[2021-12-29] MEDS: COLLAGENASE 5 GM TUBE TP SCH (08:26)
[2021-12-29] MEDS: THIAMINE HCL 100 MG TAB PO SCH (08:26)
[2021-12-29] MEDS: HEPARIN SOD (PORCINE) 5,000 UNIT/ML VIAL SC SCH ×2 (08:27→20:46)
[2021-12-29 09:23] LABS: ABG HCO3 26 mmol/L (22-26); ABG PCO2 52 mmHg (35-45); ABG PH 7.32 (7.35-7.45); ABG PO2 87 mmHg (80-105); ABG TCO2 28
[2021-12-29] MEDS: INSULIN REGULAR, HUMAN 3ML VL 100 UNIT in SODIUM CHLORIDE 0.9% 99 ML IV SCH ×6 (16:25→23:55)
[2021-12-29] MEDS ORDERED: FUROSEMIDE INJ 10 MG/ML 4 ML VIAL IV ONE (16:30)
[2021-12-29] MEDS: ALBUMIN 25% 12.5GM 50ML 50 ML IV SCH ×2 (16:31→23:44)
[2021-12-29] MEDS ORDERED: ALBUMIN 25% 12.5GM 0.25 GM/ML BTL IV SCH (22:00)
[2021-12-30] VITALS (34 sets, daily range): BP systolic 85–121; BP diastolic 53–80
[2021-12-30] MEDS: PROPOFOL IV EMULSION 10MG/ML 100 ML IV SCH ×7 (00:37→19:33)
[2021-12-30] MEDS: LORAZEPAM INJ 2 MG/ML VIAL IV SCH ×3 (02:53→08:42)
[2021-12-30] MEDS: LINEZOLID 600 MG/D5W 300ML 300 ML IV SCH ×2 (05:04→16:23)
[2021-12-30] MEDS: FAMOTIDINE 20 MG/2 ML VIAL IV SCH ×2 (05:04→16:23)
[2021-12-30] MEDS: INSULIN REGULAR, HUMAN 3ML VL 100 UNIT in SODIUM CHLORIDE 0.9% 99 ML IV SCH ×4 (05:16→10:09)
[2021-12-30] MEDS: NOREPINEPHRINE 8 MG/D5W 250 ML 250 ML IV PRN (05:24)
[2021-12-30] MEDS: FENTANYL 2000MCG/NS 250 250 ML IV SCH ×2 (06:11→14:49)
[2021-12-30 06:15] LABS: BASOPHILS % 0.3 % (0.0-1.0); EOSINOPHILS # (AUTO) 0.2 (0.0-0.4); EOSINOPHILS % 1.7 % (0.0-6.0); HEMATOCRIT 31.3 % (38.2-49.6); LYMPHOCYTES # (AUTO) 1.1 (1.0-3.2); LYMPHOCYTES % 7.8 % (18.0-39.1); MEAN CORPUSCULAR HEMOGLOBIN 32.9 pg (28-32); MEAN CORPUSCULAR HGB CONC 31.9 g/dL (31-35); MONOCYTES # (AUTO) 1.3 (0.2-0.8); MONOCYTES % 9.1 % (4.4-11.3); NEUTROPHILS % 79.4 % (38.7-80.0); PLATELET COUNT 311 x10e3/uL (140-360); RED BLOOD COUNT 3.04 x10e6/uL (4.3-5.7); RED CELL DISTRIBUTION WIDTH 14.4 % (11.7-14.4)
[2021-12-30 06:38] LABS: ALBUMIN 1.4 g/dL (3.5-5.0); ALBUMIN/GLOBULIN RATIO 0.3 (0.8-2.0); ANION GAP 17.6 mmol/L (8-16); CALCIUM 7.6 mg/dL (8.4-10.2); CREATININE, SERUM 2.1 mg/dL (0.72-1.25); POTASSIUM 4.6 mmol/L (3.5-5.1)
[2021-12-30 07:56] LABS: ABG HCO3 27 mmol/L (22-26); ABG PCO2 64 mmHg (35-45); ABG PH 7.24 (7.35-7.45); ABG PO2 189 mmHg (80-105); ABG TCO2 29
[2021-12-30] MEDS: ALBUMIN 25% 12.5GM 50ML 50 ML IV SCH (08:09)
[2021-12-30] MEDS: THIAMINE HCL 100 MG TAB PO SCH (08:09)
[2021-12-30] MEDS: FOLIC ACID 1 MG TAB PO SCH (08:09)
[2021-12-30] MEDS: MULTIVITAMINS/MINERALS TAB PO SCH (08:09)
[2021-12-30] MEDS: HEPARIN SOD (PORCINE) 5,000 UNIT/ML VIAL SC SCH ×2 (08:10→21:25)
[2021-12-30] MEDS: NEOMYCIN/POLYMYXIN/BACITRACIN 15 GM TUBE TOP SCH ×2 (09:20→17:14)
[2021-12-30] MEDS: COLLAGENASE 5 GM TUBE TP SCH (09:20)
[2021-12-30 10:05] LABS: ABG HCO3 26 mmol/L (22-26); ABG PCO2 54 mmHg (35-45); ABG PO2 123 mmHg (80-105); ABG TCO2 28
[2021-12-30] MEDS ORDERED: ACETAMINOPHEN 1000 MG/100 ML IV SCH (12:00)
[2021-12-30] MEDS: LORAZEPAM INJ 2 MG/ML VIAL IV PRN (14:17)
[2021-12-30 14:28] LABS: ABG HCO3 26 mmol/L (22-26); ABG PCO2 52 mmHg (35-45); ABG PH 7.31 (7.35-7.45); ABG PO2 92 mmHg (80-105)
[2021-12-30 14:29] LABS: ABG TCO2 30
[2021-12-30] MEDS: FUROSEMIDE INJ 10 MG/ML 4 ML VIAL IV SCH (16:00)
[2021-12-30] MEDS ORDERED: ACETAMINOPHEN 1000 MG/100 ML IV PRN (18:00)
[2021-12-31] VITALS (92 sets, daily range): BP systolic 107–151; BP diastolic 64–105
[2021-12-31] MEDS: FENTANYL 2000MCG/NS 250 250 ML IV SCH ×3 (00:08→15:56)
[2021-12-31] MEDS: FAMOTIDINE 20 MG/2 ML VIAL IV SCH ×2 (04:35→15:42)
[2021-12-31] MEDS: LINEZOLID 600 MG/D5W 300ML 300 ML IV SCH ×2 (04:45→15:42)
[2021-12-31 05:31] LABS: BASOPHILS # (AUTO) 0.1 (0.0-0.1); BASOPHILS % 0.5 % (0.0-1.0); EOSINOPHILS # (AUTO) 0.2 (0.0-0.4); EOSINOPHILS % 2.2 % (0.0-6.0); HEMATOCRIT 29.8 % (38.2-49.6); HEMOGLOBIN 9.8 g/dL (14.0-18.0); LYMPHOCYTES # (AUTO) 1.2 (1.0-3.2); LYMPHOCYTES % 11.3 % (18.0-39.1); MEAN CORPUSCULAR HEMOGLOBIN 32.9 pg (28-32); MEAN CORPUSCULAR HGB CONC 32.9 g/dL (31-35); MONOCYTES % 9.6 % (4.4-11.3); NEUTROPHILS # (AUTO) 7.7 (2.1-6.9); NEUTROPHILS % 72.3 % (38.7-80.0); PLATELET COUNT 404 x10e3/uL (140-360); RED BLOOD COUNT 2.98 x10e6/uL (4.3-5.7); RED CELL DISTRIBUTION WIDTH 14.2 % (11.7-14.4)
[2021-12-31 05:53] LABS: ALBUMIN 1.4 g/dL (3.5-5.0); ALBUMIN/GLOBULIN RATIO 0.3 (0.8-2.0); ANION GAP 16.2 mmol/L (8-16); CREATININE, SERUM 1.37 mg/dL (0.72-1.25); POTASSIUM 4.2 mmol/L (3.5-5.1)
[2021-12-31] MEDS: PROPOFOL IV EMULSION 10MG/ML 100 ML IV SCH ×5 (06:27→21:29)
[2021-12-31 07:02] LABS: ABG HCO3 30 mmol/L (22-26); ABG PCO2 52 mmHg (35-45); ABG PH 7.36 (7.35-7.45); ABG PO2 226 mmHg (80-105); ABG TCO2 31
[2021-12-31] MEDS: THIAMINE HCL 100 MG TAB PO SCH (08:13)
[2021-12-31] MEDS: MULTIVITAMINS/MINERALS TAB PO SCH (08:13)
[2021-12-31] MEDS: NEOMYCIN/POLYMYXIN/BACITRACIN 15 GM TUBE TOP SCH ×2 (08:13→16:32)
[2021-12-31] MEDS: COLLAGENASE 5 GM TUBE TP SCH (08:13)
[2021-12-31] MEDS: FUROSEMIDE INJ 10 MG/ML 4 ML VIAL IV SCH (08:13)
[2021-12-31] MEDS: FOLIC ACID 1 MG TAB PO SCH (08:13)
[2021-12-31] MEDS: HEPARIN SOD (PORCINE) 5,000 UNIT/ML VIAL SC SCH ×2 (08:42→21:28)
[2021-12-31] MEDS: LORAZEPAM INJ 2 MG/ML VIAL IV PRN (09:52)
[2021-12-31] MEDS ORDERED: LORAZEPAM INJ 2 MG/ML VIAL IV SCH (10:00)
[2021-12-31] MEDS ORDERED: ACETAMINOPHEN 1000 MG/100 ML IV PRN (10:15)
[2021-12-31 10:49] LABS: ABG HCO3 32 mmol/L (22-26); ABG PCO2 67 mmHg (35-45); ABG PH 7.39 (7.35-7.45); ABG PO2 191 mmHg (80-105); ABG TCO2 34
[2021-12-31] MEDS: LORAZEPAM INJ 2 MG/ML VIAL IV SCH ×3 (14:00→21:28)
[2022-01-01] VITALS (80 sets, daily range): BP systolic 99–149; BP diastolic 57–100
[2022-01-01] MEDS: INSULIN REGULAR, HUMAN 3ML VL 100 UNIT in SODIUM CHLORIDE 0.9% 99 ML IV SCH ×6 (00:36→21:07)
[2022-01-01] MEDS: FENTANYL 2000MCG/NS 250 250 ML IV SCH ×2 (01:16→09:30)
[2022-01-01] MEDS: PROPOFOL IV EMULSION 10MG/ML 100 ML IV SCH ×4 (01:30→23:14)
[2022-01-01] MEDS: LORAZEPAM INJ 2 MG/ML VIAL IV SCH ×6 (02:09→22:39)
[2022-01-01] MEDS: FAMOTIDINE 20 MG/2 ML VIAL IV SCH ×2 (03:48→17:09)
[2022-01-01] MEDS: LINEZOLID 600 MG/D5W 300ML 300 ML IV SCH ×2 (03:54→17:09)
[2022-01-01 06:13] LABS: BASOPHILS # (AUTO) 0.1 (0.0-0.1); BASOPHILS % 0.5 % (0.0-1.0); EOSINOPHILS # (AUTO) 0.2 (0.0-0.4); HEMATOCRIT 28.5 % (38.2-49.6); HEMOGLOBIN 9.3 g/dL (14.0-18.0); LYMPHOCYTES # (AUTO) 1.5 (1.0-3.2); LYMPHOCYTES % 16.1 % (18.0-39.1); MEAN CORPUSCULAR HEMOGLOBIN 32.9 pg (28-32); MEAN CORPUSCULAR HGB CONC 32.6 g/dL (31-35); MEAN CORPUSCULAR VOLUME 100.7 fL (81-99); MONOCYTES % 10.8 % (4.4-11.3); NEUTROPHILS # (AUTO) 6.2 (2.1-6.9); NEUTROPHILS % 64.8 % (38.7-80.0); PLATELET COUNT 438 x10e3/uL (140-360); RED BLOOD COUNT 2.83 x10e6/uL (4.3-5.7); RED CELL DISTRIBUTION WIDTH 13.9 % (11.7-14.4)
[2022-01-01 06:42] LABS: ALBUMIN 1.4 g/dL (3.5-5.0); ALBUMIN/GLOBULIN RATIO 0.3 (0.8-2.0); ANION GAP 13.1 mmol/L (8-16); CALCIUM 8.5 mg/dL (8.4-10.2); CREATININE, SERUM 0.94 mg/dL (0.72-1.25); POTASSIUM 4.1 mmol/L (3.5-5.1)
[2022-01-01 07:51] LABS: ABG HCO3 33 mmol/L (22-26); ABG PCO2 53 mmHg (35-45); ABG PO2 145 mmHg (80-105); ABG TCO2 34
[2022-01-01] MEDS: COLLAGENASE 5 GM TUBE TP SCH (08:47)
[2022-01-01] MEDS: THIAMINE HCL 100 MG TAB PO SCH (09:00)
[2022-01-01] MEDS: FUROSEMIDE INJ 10 MG/ML 4 ML VIAL IV SCH (09:00)
[2022-01-01] MEDS: FOLIC ACID 1 MG TAB PO SCH (09:00)
[2022-01-01] MEDS: MULTIVITAMINS/MINERALS TAB PO SCH (09:00)
[2022-01-01] MEDS: NEOMYCIN/POLYMYXIN/BACITRACIN 15 GM TUBE TOP SCH ×2 (09:00→17:34)
[2022-01-01] MEDS ORDERED: ROCURONIUM BROMIDE 10 MG/ML 5ML VIAL IV ONE (12:17)
[2022-01-01] MEDS ORDERED: SEVOFLURANE INHAL SOLN 250 ML PEN BTL ONE (12:17)
[2022-01-01] MEDS ORDERED: POVIDONE IODINE 0.05% 0.05 % ML PO ONE (12:17)
[2022-01-01] MEDS ORDERED: MIDAZOLAM HCL 2 MG/2 ML VIAL ONE (13:36)
[2022-01-01] MEDS ORDERED: FENTANYL CITRATE/PF 100MCG/2 ML INJ ONE (13:36)
[2022-01-01] MEDS ORDERED: BUPIVACAINE HCL 0.5% 10ML MPF VIAL INJ ONE (14:13)
[2022-01-01] MEDS ORDERED: LIDOCAINE 2% /EPINEPHRINE 20 ML SDV INJ ONE (14:13)
[2022-01-01] MEDS: LORAZEPAM INJ 2 MG/ML VIAL IV PRN (16:29)
[2022-01-01 16:49] LABS: ABG HCO3 32 mmol/L (22-26); ABG PCO2 55 mmHg (35-45); ABG PH 7.37 (7.35-7.45); ABG PO2 79 mmHg (80-105); ABG TCO2 33
[2022-01-02] VITALS (43 sets, daily range): BP systolic 100–137; BP diastolic 61–101
[2022-01-02] MEDS: FENTANYL 2000MCG/NS 250 250 ML IV SCH ×2 (01:16→15:32)
[2022-01-02] MEDS: LORAZEPAM INJ 2 MG/ML VIAL IV SCH ×6 (02:01→21:26)
[2022-01-02] MEDS: FAMOTIDINE 20 MG/2 ML VIAL IV SCH ×2 (03:37→15:30)
[2022-01-02] MEDS: PROPOFOL IV EMULSION 10MG/ML 100 ML IV SCH ×6 (03:38→22:09)
[2022-01-02] MEDS: LINEZOLID 600 MG/D5W 300ML 300 ML IV SCH ×2 (03:55→17:27)
[2022-01-02 05:34] LABS: HEMATOCRIT 30.4 % (38.2-49.6); HEMOGLOBIN 9.5 g/dL (14.0-18.0); MEAN CORPUSCULAR HEMOGLOBIN 32.3 pg (28-32); MEAN CORPUSCULAR VOLUME 103.4 fL (81-99); RED BLOOD COUNT 2.94 x10e6/uL (4.3-5.7)
[2022-01-02 05:35] LABS: BASOPHILS # (AUTO) 0.1 (0.0-0.1); BASOPHILS % 0.7 % (0.0-1.0); EOSINOPHILS # (AUTO) 0.2 (0.0-0.4); EOSINOPHILS % 2.8 % (0.0-6.0); LYMPHOCYTES # (AUTO) 1.6 (1.0-3.2); LYMPHOCYTES % 18.8 % (18.0-39.1); MEAN CORPUSCULAR HGB CONC 31.3 g/dL (31-35); MONOCYTES # (AUTO) 1.1 (0.2-0.8); MONOCYTES % 12.9 % (4.4-11.3); NEUTROPHILS # (AUTO) 4.9 (2.1-6.9); NEUTROPHILS % 57.5 % (38.7-80.0); PLATELET COUNT 475 x10e3/uL (140-360); RED CELL DISTRIBUTION WIDTH 13.6 % (11.7-14.4)
[2022-01-02 05:58] LABS: ALBUMIN 1.5 g/dL (3.5-5.0); ALBUMIN/GLOBULIN RATIO 0.3 (0.8-2.0); CALCIUM 8.8 mg/dL (8.4-10.2); CREATININE, SERUM 0.76 mg/dL (0.72-1.25)
[2022-01-02 07:46] LABS: ABG HCO3 34 mmol/L (22-26); ABG PCO2 56 mmHg (35-45); ABG PH 7.39 (7.35-7.45); ABG PO2 89 mmHg (80-105); ABG TCO2 35
[2022-01-02] MEDS: INSULIN REGULAR, HUMAN 3ML VL 100 UNIT in SODIUM CHLORIDE 0.9% 99 ML IV SCH ×4 (07:58→12:41)
[2022-01-02] MEDS: COLLAGENASE 5 GM TUBE TP SCH (08:05)
[2022-01-02] MEDS: FOLIC ACID 1 MG TAB PO SCH (08:13)
[2022-01-02] MEDS: MULTIVITAMINS/MINERALS TAB PO SCH (08:13)
[2022-01-02] MEDS: THIAMINE HCL 100 MG TAB PO SCH (08:13)
[2022-01-02] MEDS: FUROSEMIDE INJ 10 MG/ML 4 ML VIAL IV SCH (08:14)
[2022-01-02] MEDS: NEOMYCIN/POLYMYXIN/BACITRACIN 15 GM TUBE TOP SCH (08:17)
[2022-01-02] MEDS: HEPARIN SOD (PORCINE) 5,000 UNIT/ML VIAL SC SCH ×2 (10:35→21:28)
[2022-01-02] MEDS: ACETAMINOPHEN 325 MG TAB PO PRN (17:28)
[2022-01-02] MEDS: LORAZEPAM INJ 2 MG/ML VIAL IV PRN (17:30)
[2022-01-03] VITALS (56 sets, daily range): BP systolic 106–155; BP diastolic 70–102
[2022-01-03] MEDS: LORAZEPAM INJ 2 MG/ML VIAL IV SCH ×7 (02:01→23:30)
[2022-01-03] MEDS: PROPOFOL IV EMULSION 10MG/ML 100 ML IV SCH ×8 (02:30→23:00)
[2022-01-03] MEDS: LINEZOLID 600 MG/D5W 300ML 300 ML IV SCH ×2 (03:34→16:26)
[2022-01-03] MEDS: FAMOTIDINE 20 MG/2 ML VIAL IV SCH ×2 (03:34→15:46)
[2022-01-03 06:03] LABS: BASOPHILS # (AUTO) 0.1 (0.0-0.1); BASOPHILS % 1.6 % (0.0-1.0); EOSINOPHILS # (AUTO) 0.3 (0.0-0.4); EOSINOPHILS % 3.8 % (0.0-6.0); HEMATOCRIT 32.4 % (38.2-49.6); HEMOGLOBIN 10.1 g/dL (14.0-18.0); LYMPHOCYTES # (AUTO) 1.7 (1.0-3.2); LYMPHOCYTES % 20.9 % (18.0-39.1); MEAN CORPUSCULAR HEMOGLOBIN 32.2 pg (28-32); MEAN CORPUSCULAR HGB CONC 31.2 g/dL (31-35); MEAN CORPUSCULAR VOLUME 103.2 fL (81-99); MONOCYTES % 12.1 % (4.4-11.3); NEUTROPHILS # (AUTO) 4.5 (2.1-6.9); PLATELET COUNT 417 x10e3/uL (140-360); RED BLOOD COUNT 3.14 x10e6/uL (4.3-5.7); RED CELL DISTRIBUTION WIDTH 13.5 % (11.7-14.4)
[2022-01-03 06:30] LABS: ALBUMIN 1.6 g/dL (3.5-5.0); ALBUMIN/GLOBULIN RATIO 0.3 (0.8-2.0); ANION GAP 13.3 mmol/L (8-16); CALCIUM 9.2 mg/dL (8.4-10.2); CREATININE, SERUM 0.75 mg/dL (0.72-1.25); POTASSIUM 5.3 mmol/L (3.5-5.1)
[2022-01-03 07:39] LABS: ABG HCO3 37 mmol/L (22-26); ABG PCO2 57 mmHg (35-45); ABG PH 7.42 (7.35-7.45); ABG PO2 87 mmHg (80-105); ABG TCO2 38
[2022-01-03] MEDS: THIAMINE HCL 100 MG TAB PO SCH (08:53)
[2022-01-03] MEDS: FOLIC ACID 1 MG TAB PO SCH (08:53)
[2022-01-03] MEDS: HEPARIN SOD (PORCINE) 5,000 UNIT/ML VIAL SC SCH ×2 (08:53→21:15)
[2022-01-03] MEDS: MULTIVITAMINS/MINERALS TAB PO SCH (08:53)
[2022-01-03] MEDS: FUROSEMIDE INJ 10 MG/ML 4 ML VIAL IV SCH ×3 (08:53→21:31)
[2022-01-03] MEDS: COLLAGENASE 5 GM TUBE TP SCH (08:54)
[2022-01-03] MEDS: FENTANYL 2000MCG/NS 250 250 ML IV SCH ×2 (09:25→10:45)
[2022-01-03] MEDS: ALBUMIN 25% 25GM 100ML 0.25 GM/ML BTL IV SCH ×5 (11:45→21:40)
[2022-01-03] MEDS: ACETAMINOPHEN 325 MG TAB PO PRN (12:36)
[2022-01-03 17:31] LABS: CLARITY,URINE HAZY (CLEAR); COLOR,URINE YELLOW (YELLOW); KETONES,URINE NEGATIVE (NEGATIVE); LEUKOCYTE ESTERASE ,URINE NEGATIVE (NEGATIVE); NITRITE,URINE NEGATIVE (NEGATIVE); PROTEIN,URINE DIPSTICK TRACE (NEGATIVE); URINE UROBILINOGEN 0.2 mg/dL (0.2 - 1)
[2022-01-03 17:33] LABS: BACTERIA,URINE FEW /HPF; EPITHELIAL CELLS,URINE FEW /LPF; WBC,URINE (MAN) 0-5 /HPF (0-5)
[2022-01-03] MEDS: INSULIN REGULAR, HUMAN 3ML VL 100 UNIT in SODIUM CHLORIDE 0.9% 99 ML IV SCH ×2 (18:04)
[2022-01-04] VITALS (87 sets, daily range): BP systolic 111–160; BP diastolic 67–114
[2022-01-04] MEDS: FENTANYL 2000MCG/NS 250 250 ML IV SCH (02:00)
[2022-01-04] MEDS: LORAZEPAM INJ 2 MG/ML VIAL IV PRN (02:00)
[2022-01-04] MEDS: LORAZEPAM INJ 2 MG/ML VIAL IV SCH ×3 (02:00→09:23)
[2022-01-04] MEDS: PROPOFOL IV EMULSION 10MG/ML 100 ML IV SCH ×5 (02:30→19:32)
[2022-01-04] MEDS: LINEZOLID 600 MG/D5W 300ML 300 ML IV SCH ×2 (03:19→15:46)
[2022-01-04] MEDS: FAMOTIDINE 20 MG/2 ML VIAL IV SCH ×2 (03:19→15:46)
[2022-01-04 05:53] LABS: BASOPHILS # (AUTO) 0.1 (0.0-0.1); BASOPHILS % 1.3 % (0.0-1.0); EOSINOPHILS # (AUTO) 0.3 (0.0-0.4); EOSINOPHILS % 4.4 % (0.0-6.0); HEMATOCRIT 28.9 % (38.2-49.6); HEMOGLOBIN 9.1 g/dL (14.0-18.0); LYMPHOCYTES # (AUTO) 1.3 (1.0-3.2); LYMPHOCYTES % 18.8 % (18.0-39.1); MEAN CORPUSCULAR HEMOGLOBIN 32.6 pg (28-32); MEAN CORPUSCULAR HGB CONC 31.5 g/dL (31-35); MEAN CORPUSCULAR VOLUME 103.6 fL (81-99); MONOCYTES # (AUTO) 0.8 (0.2-0.8); MONOCYTES % 11.3 % (4.4-11.3); PLATELET COUNT 415 x10e3/uL (140-360); RED BLOOD COUNT 2.79 x10e6/uL (4.3-5.7); RED CELL DISTRIBUTION WIDTH 13.4 % (11.7-14.4)
[2022-01-04 06:14] LABS: ALBUMIN 2.1 g/dL (3.5-5.0); ALBUMIN/GLOBULIN RATIO 0.4 (0.8-2.0); ANION GAP 14.1 mmol/L (8-16); CALCIUM 9.5 mg/dL (8.4-10.2); CREATININE, SERUM 0.75 mg/dL (0.72-1.25); POTASSIUM 4.1 mmol/L (3.5-5.1)
[2022-01-04 07:51] LABS: ABG HCO3 43 mmol/L (22-26); ABG PCO2 63 mmHg (35-45); ABG PH 7.44 (7.35-7.45); ABG PO2 92 mmHg (80-105); ABG TCO2 45
[2022-01-04] MEDS: THIAMINE HCL 100 MG TAB PO SCH (08:33)
[2022-01-04] MEDS: COLLAGENASE 5 GM TUBE TP SCH (08:33)
[2022-01-04] MEDS: HEPARIN SOD (PORCINE) 5,000 UNIT/ML VIAL SC SCH (08:33)
[2022-01-04] MEDS: FOLIC ACID 1 MG TAB PO SCH (08:33)
[2022-01-04] MEDS: MULTIVITAMINS/MINERALS TAB PO SCH (08:33)
[2022-01-04] MEDS: FUROSEMIDE INJ 10 MG/ML 4 ML VIAL IV SCH (08:33)
[2022-01-04 08:51] LABS: PLATELET ESTIMATE MODERATELY INCREASED; PLATELET MORPHOLOGY COMMENT FEW GIANT; POLYCHROMASIA FEW
[2022-01-04] MEDS ORDERED: LORAZEPAM INJ 2 MG/ML VIAL IV PRN (09:30)
[2022-01-04] MEDS: ACETAMINOPHEN 325 MG TAB PO PRN (11:55)
[2022-01-04] MEDS: DEXMEDETOMIDINE 400MCG/NS100ML 100 ML IV PRN (13:53)
[2022-01-04] MEDS ORDERED: INSULIN GLARGINE 100 UNITS/ML VIAL SQ SCH (21:00)
[2022-01-05] VITALS (57 sets, daily range): BP systolic 110–149; BP diastolic 67–94
[2022-01-05] MEDS: FENTANYL 2000MCG/NS 250 250 ML IV SCH
[2022-01-05] MEDS: INSULIN REGULAR, HUMAN 3ML VL 100 UNIT in SODIUM CHLORIDE 0.9% 99 ML IV SCH ×4 (00:22→20:50)
[2022-01-05] MEDS: FAMOTIDINE 20 MG/2 ML VIAL IV SCH ×2 (03:45→15:51)
[2022-01-05] MEDS: PROPOFOL IV EMULSION 10MG/ML 100 ML IV SCH ×5 (04:15→20:48)
[2022-01-05] MEDS: LINEZOLID 600 MG/D5W 300ML 300 ML IV SCH ×2 (04:30→15:51)
[2022-01-05 05:01] LABS: BASOPHILS # (AUTO) 0.2 (0.0-0.1); BASOPHILS % 2.2 % (0.0-1.0); EOSINOPHILS # (AUTO) 0.3 (0.0-0.4); EOSINOPHILS % 3.3 % (0.0-6.0); HEMATOCRIT 30.2 % (38.2-49.6); HEMOGLOBIN 9.6 g/dL (14.0-18.0); LYMPHOCYTES # (AUTO) 1.8 (1.0-3.2); LYMPHOCYTES % 20.3 % (18.0-39.1); MEAN CORPUSCULAR HEMOGLOBIN 32.2 pg (28-32); MEAN CORPUSCULAR HGB CONC 31.8 g/dL (31-35); MEAN CORPUSCULAR VOLUME 101.3 fL (81-99); MONOCYTES # (AUTO) 0.9 (0.2-0.8); MONOCYTES % 9.9 % (4.4-11.3); NEUTROPHILS # (AUTO) 5.4 (2.1-6.9); NEUTROPHILS % 60.6 % (38.7-80.0); PLATELET COUNT 383 x10e3/uL (140-360); RED BLOOD COUNT 2.98 x10e6/uL (4.3-5.7)
[2022-01-05 05:19] LABS: ALBUMIN/GLOBULIN RATIO 0.4 (0.8-2.0); ANION GAP 11.3 mmol/L (8-16); CALCIUM 10.1 mg/dL (8.4-10.2); CREATININE, SERUM 0.78 mg/dL (0.72-1.25); POTASSIUM 4.3 mmol/L (3.5-5.1)
[2022-01-05 08:35] LABS: ABG HCO3 46 mmol/L (22-26); ABG PCO2 64 mmHg (35-45); ABG PH 7.47 (7.35-7.45); ABG PO2 85 mmHg (80-105); ABG TCO2 48
[2022-01-05] MEDS: MULTIVITAMINS/MINERALS TAB PO SCH (08:41)
[2022-01-05] MEDS: COLLAGENASE 5 GM TUBE TP SCH (08:41)
[2022-01-05] MEDS: FOLIC ACID 1 MG TAB PO SCH (08:41)
[2022-01-05] MEDS: THIAMINE HCL 100 MG TAB PO SCH (08:41)
[2022-01-05] MEDS ORDERED: FUROSEMIDE INJ 10 MG/ML 4 ML VIAL IV SCH (09:00)
[2022-01-05] MEDS ORDERED: ACETAZOLAMIDE SODIUM 500 MG/VIAL IV ONE (09:00)
[2022-01-05] MEDS: ACETAMINOPHEN 325 MG TAB PO PRN (17:04)
[2022-01-05] MEDS ORDERED: INSULIN GLARGINE 100 UNITS/ML VIAL SQ SCH (21:00)
[2022-01-06] VITALS (55 sets, daily range): BP systolic 96–138; BP diastolic 51–96
[2022-01-06] MEDS: INSULIN REGULAR, HUMAN 3ML VL 100 UNIT in SODIUM CHLORIDE 0.9% 99 ML IV SCH ×8 (00:02→20:47)
[2022-01-06] MEDS: PROPOFOL IV EMULSION 10MG/ML 100 ML IV SCH ×7 (01:22→22:40)
[2022-01-06] MEDS: LINEZOLID 600 MG/D5W 300ML 300 ML IV SCH ×2 (04:25→15:31)
[2022-01-06] MEDS: FAMOTIDINE 20 MG/2 ML VIAL IV SCH ×2 (04:25→15:30)
[2022-01-06] MEDS: DEXMEDETOMIDINE 400MCG/NS100ML 100 ML IV PRN ×2 (04:26→18:41)
[2022-01-06 06:04] LABS: BASOPHILS # (AUTO) 0.2 (0.0-0.1); EOSINOPHILS # (AUTO) 0.4 (0.0-0.4); EOSINOPHILS % 3.7 % (0.0-6.0); HEMATOCRIT 31.6 % (38.2-49.6); HEMOGLOBIN 10.4 g/dL (14.0-18.0); LYMPHOCYTES # (AUTO) 1.7 (1.0-3.2); LYMPHOCYTES % 16.6 % (18.0-39.1); MEAN CORPUSCULAR HEMOGLOBIN 32.8 pg (28-32); MEAN CORPUSCULAR HGB CONC 32.9 g/dL (31-35); MEAN CORPUSCULAR VOLUME 99.7 fL (81-99); MONOCYTES % 9.5 % (4.4-11.3); NEUTROPHILS # (AUTO) 6.9 (2.1-6.9); NEUTROPHILS % 66.5 % (38.7-80.0); PLATELET COUNT 397 x10e3/uL (140-360); RED BLOOD COUNT 3.17 x10e6/uL (4.3-5.7); RED CELL DISTRIBUTION WIDTH 12.6 % (11.7-14.4)
[2022-01-06] MEDS: ACETAMINOPHEN 325 MG TAB PO PRN ×2 (06:31→20:34)
[2022-01-06 06:33] LABS: ALBUMIN 2.1 g/dL (3.5-5.0); ALBUMIN/GLOBULIN RATIO 0.4 (0.8-2.0); CALCIUM 10.2 mg/dL (8.4-10.2); CREATININE, SERUM 0.85 mg/dL (0.72-1.25)
[2022-01-06] MEDS ORDERED: LORAZEPAM INJ 2 MG/ML VIAL IV PRN (08:00)
[2022-01-06 08:09] LABS: ABG HCO3 40 mmol/L (22-26); ABG PCO2 56 mmHg (35-45); ABG PH 7.46 (7.35-7.45); ABG PO2 87 mmHg (80-105); ABG TCO2 42
[2022-01-06] MEDS: HEPARIN SOD (PORCINE) 5,000 UNIT/ML VIAL SC SCH ×2 (08:30→20:41)
[2022-01-06] MEDS: FOLIC ACID 1 MG TAB PO SCH (08:37)
[2022-01-06] MEDS: ACETAZOLAMIDE SODIUM 500 MG/VIAL IV SCH (08:37)
[2022-01-06] MEDS: COLLAGENASE 5 GM TUBE TP SCH (08:38)
[2022-01-06] MEDS: FENTANYL 2000MCG/NS 250 250 ML IV SCH (08:38)
[2022-01-06] MEDS: MULTIVITAMINS/MINERALS TAB PO SCH (08:38)
[2022-01-06] MEDS: THIAMINE HCL 100 MG TAB PO SCH (08:38)
[2022-01-06] MEDS ORDERED: Morphine 10mg syringe 10 MG/ML INJ ONE (12:23)
[2022-01-06] MEDS ORDERED: MIDAZOLAM HCL 2 MG/2 ML VIAL ONE (12:23)
[2022-01-06] MEDS ORDERED: FENTANYL CITRATE/PF 100MCG/2 ML INJ ONE (12:23)
[2022-01-06] MEDS ORDERED: SEVOFLURANE INHAL SOLN 250 ML PEN BTL ONE (13:02)
[2022-01-06] MEDS: CLINDAMYCIN 600MG / 50ML 50 ML IV SCH ×2 (15:30→21:05)
[2022-01-06] MEDS: IBUPROFEN 800MG/ 200ML 200 ML IV PRN (20:00)
[2022-01-06] MEDS ORDERED: INSULIN GLARGINE 100 UNITS/ML VIAL SQ SCH (21:00)
[2022-01-06] MEDS ORDERED: HEPARIN SOD (PORCINE) 5,000 UNIT/ML VIAL SC SCH (21:00)
[2022-01-07] VITALS (93 sets, daily range): BP systolic 90–172; BP diastolic 42–102
[2022-01-07] MEDS: INSULIN REGULAR, HUMAN 3ML VL 100 UNIT in SODIUM CHLORIDE 0.9% 99 ML IV SCH ×4 (00:08→18:08)
[2022-01-07] MEDS: ACETAMINOPHEN 325 MG TAB PO PRN (04:07)
[2022-01-07] MEDS: FAMOTIDINE 20 MG/2 ML VIAL IV SCH ×2 (04:07→18:05)
[2022-01-07] MEDS: PROPOFOL IV EMULSION 10MG/ML 100 ML IV SCH ×8 (04:10→23:41)
[2022-01-07] MEDS: LINEZOLID 600 MG/D5W 300ML 300 ML IV SCH ×2 (04:35→18:05)
[2022-01-07] MEDS: CLINDAMYCIN 600MG / 50ML 50 ML IV SCH ×3 (05:46→20:58)
[2022-01-07 06:18] LABS: BASOPHILS # (AUTO) 0.2 (0.0-0.1); BASOPHILS % 1.7 % (0.0-1.0); EOSINOPHILS # (AUTO) 0.5 (0.0-0.4); EOSINOPHILS % 4.2 % (0.0-6.0); HEMATOCRIT 27.6 % (38.2-49.6); LYMPHOCYTES # (AUTO) 1.7 (1.0-3.2); LYMPHOCYTES % 14.3 % (18.0-39.1); MEAN CORPUSCULAR HEMOGLOBIN 33.1 pg (28-32); MEAN CORPUSCULAR HGB CONC 32.6 g/dL (31-35); MEAN CORPUSCULAR VOLUME 101.5 fL (81-99); MONOCYTES % 8.7 % (4.4-11.3); NEUTROPHILS % 69.6 % (38.7-80.0); PLATELET COUNT 340 x10e3/uL (140-360); RED BLOOD COUNT 2.72 x10e6/uL (4.3-5.7); RED CELL DISTRIBUTION WIDTH 13.2 % (11.7-14.4)
[2022-01-07 06:45] LABS: ALBUMIN/GLOBULIN RATIO 0.4 (0.8-2.0); ANION GAP 15.8 mmol/L (8-16); CREATININE, SERUM 1.4 mg/dL (0.72-1.25); MAGNESIUM 1.3 MG/DL (1.3-2.1); PHOSPHORUS 6.3 MG/DL (2.3-4.7); POTASSIUM 3.8 mmol/L (3.5-5.1)
[2022-01-07 08:04] LABS: ABG HCO3 37 mmol/L (22-26); ABG PCO2 55 mmHg (35-45); ABG PH 7.43 (7.35-7.45); ABG PO2 77 mmHg (80-105); ABG TCO2 38
[2022-01-07] MEDS ORDERED: SODIUM CHLORIDE 0.9% 250ML 250 ML ONE (08:37)
[2022-01-07] MEDS: THIAMINE HCL 100 MG TAB PO SCH (09:30)
[2022-01-07] MEDS: FOLIC ACID 1 MG TAB PO SCH (09:30)
[2022-01-07] MEDS: ACETAZOLAMIDE SODIUM 500 MG/VIAL IV SCH (09:30)
[2022-01-07] MEDS: MULTIVITAMINS/MINERALS TAB PO SCH (09:30)
[2022-01-07] MEDS: HEPARIN SOD (PORCINE) 5,000 UNIT/ML VIAL SC SCH ×2 (09:31→21:09)
[2022-01-07] MEDS: IBUPROFEN 800MG/ 200ML 200 ML IV PRN (09:49)
[2022-01-07 11:07] LABS: EOSINOPHILS % (MANUAL) 5 % (0-7); LYMPHOCYTES % (MANUAL) 6 % (19-48); METAMYELOCYTES % (MANUAL) 2 % (0-0); MONOCYTES % (MANUAL) 2 % (3.4-9.0); NEUTROPHILS % (MANUAL) 82 % (40-74)
[2022-01-07 11:08] LABS: HYPOCHROMASIA SLIGHT; PLATELET ESTIMATE ADEQUATE; PLATELET MORPHOLOGY COMMENT NORMAL; RBC MORPHOLOGY COMMENT ABNORMAL
[2022-01-07] MEDS ORDERED: MAGNESIUM SULF 1GRAM/DEXTROSE 300 ML IV ONE (13:45)
[2022-01-07 14:16] LABS: ANION GAP 15.8 mmol/L (8-16); CALCIUM 8.6 mg/dL (8.4-10.2); CREATININE, SERUM 1.21 mg/dL (0.72-1.25); POTASSIUM 3.8 mmol/L (3.5-5.1)
[2022-01-07] MEDS: INSULIN GLARGINE 100 UNITS/ML VIAL SQ SCH (21:09)
[2022-01-08] VITALS (85 sets, daily range): BP systolic 80–164; BP diastolic 43–93
[2022-01-08] MEDS: FAMOTIDINE 20 MG/2 ML VIAL IV SCH ×2 (03:08→16:50)
[2022-01-08] MEDS: LINEZOLID 600 MG/D5W 300ML 300 ML IV SCH ×2 (03:28→16:50)
[2022-01-08] MEDS: PROPOFOL IV EMULSION 10MG/ML 100 ML IV SCH ×6 (03:29→22:00)
[2022-01-08] MEDS: CLINDAMYCIN 600MG / 50ML 50 ML IV SCH ×3 (05:41→23:00)
[2022-01-08 05:43] LABS: BASOPHILS # (AUTO) 0.2 (0.0-0.1); BASOPHILS % 1.5 % (0.0-1.0); EOSINOPHILS # (AUTO) 0.7 (0.0-0.4); EOSINOPHILS % 5.8 % (0.0-6.0); HEMATOCRIT 25.5 % (38.2-49.6); LYMPHOCYTES # (AUTO) 1.4 (1.0-3.2); LYMPHOCYTES % 11.6 % (18.0-39.1); MEAN CORPUSCULAR HEMOGLOBIN 35.2 pg (28-32); MEAN CORPUSCULAR HGB CONC 35.3 g/dL (31-35); MEAN CORPUSCULAR VOLUME 99.6 fL (81-99); MONOCYTES # (AUTO) 1.1 (0.2-0.8); NEUTROPHILS # (AUTO) 8.5 (2.1-6.9); NEUTROPHILS % 70.9 % (38.7-80.0); PLATELET COUNT 321 x10e3/uL (140-360); RED BLOOD COUNT 2.56 x10e6/uL (4.3-5.7); RED CELL DISTRIBUTION WIDTH 12.9 % (11.7-14.4)
[2022-01-08] MEDS: DEXMEDETOMIDINE 400MCG/NS100ML 100 ML IV PRN (05:44)
[2022-01-08 06:08] LABS: ALBUMIN 1.9 g/dL (3.5-5.0); ALBUMIN/GLOBULIN RATIO 0.3 (0.8-2.0); ANION GAP 11.2 mmol/L (8-16); CALCIUM 8.4 mg/dL (8.4-10.2); CREATININE, SERUM 0.84 mg/dL (0.72-1.25); POTASSIUM 4.2 mmol/L (3.5-5.1)
[2022-01-08] MEDS: MULTIVITAMINS/MINERALS TAB PO SCH (08:26)
[2022-01-08] MEDS: FOLIC ACID 1 MG TAB PO SCH (08:26)
[2022-01-08] MEDS: ACETAZOLAMIDE SODIUM 500 MG/VIAL IV SCH (08:26)
[2022-01-08] MEDS: THIAMINE HCL 100 MG TAB PO SCH (08:26)
[2022-01-08] MEDS: HEPARIN SOD (PORCINE) 5,000 UNIT/ML VIAL SC SCH ×2 (08:27→21:00)
[2022-01-08 08:42] LABS: ABG HCO3 34 mmol/L (22-26); ABG PCO2 45 mmHg (35-45); ABG PH 7.48 (7.35-7.45); ABG PO2 58 mmHg (80-105); ABG TCO2 35
[2022-01-08 08:53] LABS: BAND NEUTROPHILS % (MANUAL) 3 %; EOSINOPHILS % (MANUAL) 8 % (0-7); LYMPHOCYTES % (MANUAL) 7 % (19-48); MONOCYTES % (MANUAL) 2 % (3.4-9.0); NEUTROPHILS % (MANUAL) 80 % (40-74)
[2022-01-08 08:54] LABS: PLATELET ESTIMATE ADEQUATE; PLATELET MORPHOLOGY COMMENT NORMAL; RBC MORPHOLOGY COMMENT NORMAL
[2022-01-08] MEDS: INSULIN GLARGINE 100 UNITS/ML VIAL SQ SCH (23:34)
[2022-01-09] VITALS (28 sets, daily range): BP systolic 100–150; BP diastolic 55–95
[2022-01-09] MEDS: FAMOTIDINE 20 MG/2 ML VIAL IV SCH ×2 (04:45→15:29)
[2022-01-09] MEDS: LINEZOLID 600 MG/D5W 300ML 300 ML IV SCH ×2 (04:55→15:29)
[2022-01-09 06:31] LABS: BASOPHILS # (AUTO) 0.2 (0.0-0.1); BASOPHILS % 1.5 % (0.0-1.0); EOSINOPHILS # (AUTO) 0.9 (0.0-0.4); EOSINOPHILS % 8.7 % (0.0-6.0); HEMATOCRIT 26.4 % (38.2-49.6); HEMOGLOBIN 8.4 g/dL (14.0-18.0); LYMPHOCYTES # (AUTO) 1.6 (1.0-3.2); LYMPHOCYTES % 15.6 % (18.0-39.1); MEAN CORPUSCULAR HEMOGLOBIN 31.7 pg (28-32); MEAN CORPUSCULAR HGB CONC 31.8 g/dL (31-35); MEAN CORPUSCULAR VOLUME 99.6 fL (81-99); MONOCYTES # (AUTO) 1.1 (0.2-0.8); MONOCYTES % 10.5 % (4.4-11.3); NEUTROPHILS # (AUTO) 6.4 (2.1-6.9); NEUTROPHILS % 62.1 % (38.7-80.0); PLATELET COUNT 377 x10e3/uL (140-360); RED BLOOD COUNT 2.65 x10e6/uL (4.3-5.7); RED CELL DISTRIBUTION WIDTH 12.8 % (11.7-14.4)
[2022-01-09] MEDS: CLINDAMYCIN 600MG / 50ML 50 ML IV SCH ×3 (06:48→21:01)
[2022-01-09 07:26] LABS: ALBUMIN 1.9 g/dL (3.5-5.0); ALBUMIN/GLOBULIN RATIO 0.3 (0.8-2.0); ANION GAP 12.9 mmol/L (8-16); CALCIUM 9.4 mg/dL (8.4-10.2); CREATININE, SERUM 0.78 mg/dL (0.72-1.25); POTASSIUM 3.9 mmol/L (3.5-5.1)
[2022-01-09 07:47] LABS: ABG HCO3 32 mmol/L (22-26); ABG PCO2 46 mmHg (35-45); ABG PH 7.45 (7.35-7.45); ABG PO2 130 mmHg (80-105); ABG TCO2 33
[2022-01-09] MEDS: ALBUMIN 25% 25GM 100ML 100 ML IV SCH ×2 (08:27→17:31)
[2022-01-09] MEDS: FOLIC ACID 1 MG TAB PO SCH (08:29)
[2022-01-09] MEDS: FUROSEMIDE INJ 10 MG/ML 4 ML VIAL IV SCH ×2 (08:29→21:01)
[2022-01-09] MEDS: THIAMINE HCL 100 MG TAB PO SCH (08:29)
[2022-01-09] MEDS: MULTIVITAMINS/MINERALS TAB PO SCH (08:29)
[2022-01-09] MEDS ORDERED: HYDROMORPHONE 1MG/1ML INJ IV PRN (08:30)
[2022-01-09] MEDS: ENOXAPARIN SOD INJ 40 MG/0.4 ML SYR SC SCH (08:31)
[2022-01-09] MEDS: INSULIN GLARGINE 100 UNITS/ML VIAL SQ SCH ×2 (08:39→20:57)
[2022-01-09] MEDS: DEXMEDETOMIDINE 400MCG/NS100ML 100 ML IV PRN (08:44)
[2022-01-09] MEDS: PROPOFOL IV EMULSION 10MG/ML 100 ML IV SCH ×4 (08:45→20:26)
[2022-01-09] MEDS ORDERED: ALBUMIN 25% 25GM 100ML 0.25 GM/ML BTL IV SCH (08:45)
[2022-01-09] MEDS: INSULIN REGULAR, HUMAN 3ML VL 100 UNIT in SODIUM CHLORIDE 0.9% 99 ML IV SCH ×2 (20:56)
[2022-01-10] VITALS (25 sets, daily range): BP systolic 103–158; BP diastolic 54–114
[2022-01-10] MEDS: INSULIN REGULAR, HUMAN 3ML VL 100 UNIT in SODIUM CHLORIDE 0.9% 99 ML IV SCH ×2 (00:58)
[2022-01-10] MEDS: PROPOFOL IV EMULSION 10MG/ML 100 ML IV SCH ×4 (01:34→12:51)
[2022-01-10] MEDS: DEXMEDETOMIDINE 400MCG/NS100ML 100 ML IV PRN ×2 (02:26→12:50)
[2022-01-10] MEDS: FAMOTIDINE 20 MG/2 ML VIAL IV SCH ×2 (04:10→16:55)
[2022-01-10] MEDS: LINEZOLID 600 MG/D5W 300ML 300 ML IV SCH ×2 (04:14→16:55)
[2022-01-10 05:00] LABS: BASOPHILS # (AUTO) 0.1 (0.0-0.1); BASOPHILS % 1.6 % (0.0-1.0); EOSINOPHILS # (AUTO) 0.8 (0.0-0.4); EOSINOPHILS % 9.7 % (0.0-6.0); HEMATOCRIT 24.5 % (38.2-49.6); LYMPHOCYTES # (AUTO) 1.3 (1.0-3.2); LYMPHOCYTES % 16.2 % (18.0-39.1); MEAN CORPUSCULAR HEMOGLOBIN 31.7 pg (28-32); MEAN CORPUSCULAR HGB CONC 32.7 g/dL (31-35); MEAN CORPUSCULAR VOLUME 97.2 fL (81-99); MONOCYTES # (AUTO) 0.9 (0.2-0.8); MONOCYTES % 11.1 % (4.4-11.3); NEUTROPHILS # (AUTO) 4.8 (2.1-6.9); NEUTROPHILS % 60.2 % (38.7-80.0); PLATELET COUNT 375 x10e3/uL (140-360); RED BLOOD COUNT 2.52 x10e6/uL (4.3-5.7); RED CELL DISTRIBUTION WIDTH 12.5 % (11.7-14.4)
[2022-01-10] MEDS: CLINDAMYCIN 600MG / 50ML 50 ML IV SCH ×3 (05:18→22:00)
[2022-01-10 05:19] LABS: ALBUMIN 2.1 g/dL (3.5-5.0); ALBUMIN/GLOBULIN RATIO 0.4 (0.8-2.0); ANION GAP 12.5 mmol/L (8-16); CALCIUM 9.4 mg/dL (8.4-10.2); CREATININE, SERUM 0.7 mg/dL (0.72-1.25); POTASSIUM 3.5 mmol/L (3.5-5.1)
[2022-01-10] MEDS: MULTIVITAMINS/MINERALS TAB PO SCH (09:52)
[2022-01-10] MEDS: THIAMINE HCL 100 MG TAB PO SCH (09:52)
[2022-01-10] MEDS: INSULIN GLARGINE 100 UNITS/ML VIAL SQ SCH ×2 (09:52→21:26)
[2022-01-10] MEDS: FOLIC ACID 1 MG TAB PO SCH (09:52)
[2022-01-10] MEDS: ENOXAPARIN SOD INJ 40 MG/0.4 ML SYR SC SCH (09:52)
[2022-01-10] MEDS: FUROSEMIDE INJ 10 MG/ML 4 ML VIAL IV SCH ×2 (09:53→21:24)
[2022-01-10] MEDS ORDERED: POTASSIUM CHLORIDE 20MEQ/100ML 100 ML IV ONE (11:45)
[2022-01-10 13:23] LABS: ABG HCO3 34 mmol/L (22-26); ABG PCO2 39 mmHg (35-45); ABG PH 7.55 (7.35-7.45); ABG PO2 116 mmHg (80-105); ABG TCO2 35
[2022-01-11] VITALS (26 sets, daily range): BP systolic 112–170; BP diastolic 70–127
[2022-01-11] MEDS ORDERED: SODIUM CHLORIDE 0.9% 250ML 250 ML ONE (00:56)
[2022-01-11] MEDS: FAMOTIDINE 20 MG/2 ML VIAL IV SCH ×2 (04:30→15:46)
[2022-01-11] MEDS: LINEZOLID 600 MG/D5W 300ML 300 ML IV SCH (04:30)
[2022-01-11 05:30] LABS: BASOPHILS # (AUTO) 0.2 (0.0-0.1); BASOPHILS % 1.8 % (0.0-1.0); EOSINOPHILS # (AUTO) 0.3 (0.0-0.4); EOSINOPHILS % 3.3 % (0.0-6.0); HEMATOCRIT 26.3 % (38.2-49.6); HEMOGLOBIN 8.4 g/dL (14.0-18.0); LYMPHOCYTES # (AUTO) 1.8 (1.0-3.2); MEAN CORPUSCULAR HEMOGLOBIN 31.1 pg (28-32); MEAN CORPUSCULAR HGB CONC 31.9 g/dL (31-35); MEAN CORPUSCULAR VOLUME 97.4 fL (81-99); MONOCYTES # (AUTO) 1.1 (0.2-0.8); MONOCYTES % 11.3 % (4.4-11.3); NEUTROPHILS # (AUTO) 6.4 (2.1-6.9); NEUTROPHILS % 64.7 % (38.7-80.0); PLATELET COUNT 449 x10e3/uL (140-360); RED CELL DISTRIBUTION WIDTH 12.7 % (11.7-14.4)
[2022-01-11 05:48] LABS: ALBUMIN 2.2 g/dL (3.5-5.0); ALBUMIN/GLOBULIN RATIO 0.4 (0.8-2.0); ANION GAP 12.8 mmol/L (8-16); CALCIUM 9.1 mg/dL (8.4-10.2); CREATININE, SERUM 0.75 mg/dL (0.72-1.25); POTASSIUM 3.8 mmol/L (3.5-5.1)
[2022-01-11] MEDS: CLINDAMYCIN 600MG / 50ML 50 ML IV SCH ×3 (06:00→21:17)
[2022-01-11] MEDS: MULTIVITAMINS/MINERALS TAB PO SCH (08:32)
[2022-01-11] MEDS: FUROSEMIDE INJ 10 MG/ML 4 ML VIAL IV SCH (08:32)
[2022-01-11] MEDS: THIAMINE HCL 100 MG TAB PO SCH (08:32)
[2022-01-11] MEDS: FOLIC ACID 1 MG TAB PO SCH (08:32)
[2022-01-11] MEDS: ENOXAPARIN SOD INJ 40 MG/0.4 ML SYR SC SCH (08:32)
[2022-01-11] MEDS: INSULIN GLARGINE 100 UNITS/ML VIAL SQ SCH ×2 (08:33→21:18)
[2022-01-11] MEDS: ACETAMINOPHEN 325 MG TAB PO PRN ×2 (10:40→21:52)
[2022-01-11] MEDS: PROPOFOL IV EMULSION 10MG/ML 100 ML IV SCH ×3 (16:12→21:18)
[2022-01-12] VITALS (25 sets, daily range): BP systolic 96–130; BP diastolic 50–105
[2022-01-12] MEDS: INSULIN REGULAR, HUMAN 3ML VL 100 UNIT in SODIUM CHLORIDE 0.9% 99 ML IV SCH ×4 (00:08→04:55)
[2022-01-12] MEDS: PROPOFOL IV EMULSION 10MG/ML 100 ML IV SCH ×5 (03:17→21:01)
[2022-01-12] MEDS: FAMOTIDINE 20 MG/2 ML VIAL IV SCH ×2 (03:50→16:45)
[2022-01-12 05:16] LABS: BASOPHILS # (AUTO) 0.1 (0.0-0.1); BASOPHILS % 1.5 % (0.0-1.0); EOSINOPHILS # (AUTO) 0.4 (0.0-0.4); EOSINOPHILS % 4.3 % (0.0-6.0); HEMATOCRIT 24.6 % (38.2-49.6); HEMOGLOBIN 7.9 g/dL (14.0-18.0); LYMPHOCYTES # (AUTO) 1.4 (1.0-3.2); MEAN CORPUSCULAR HEMOGLOBIN 31.5 pg (28-32); MEAN CORPUSCULAR HGB CONC 32.1 g/dL (31-35); MONOCYTES # (AUTO) 1.1 (0.2-0.8); MONOCYTES % 11.2 % (4.4-11.3); NEUTROPHILS # (AUTO) 6.5 (2.1-6.9); NEUTROPHILS % 67.3 % (38.7-80.0); PLATELET COUNT 464 x10e3/uL (140-360); RED BLOOD COUNT 2.51 x10e6/uL (4.3-5.7); RED CELL DISTRIBUTION WIDTH 12.8 % (11.7-14.4)
[2022-01-12 05:32] LABS: ALBUMIN 2.2 g/dL (3.5-5.0); ALBUMIN/GLOBULIN RATIO 0.4 (0.8-2.0); ANION GAP 13.7 mmol/L (8-16); CREATININE, SERUM 0.68 mg/dL (0.72-1.25); POTASSIUM 3.7 mmol/L (3.5-5.1)
[2022-01-12] MEDS: CLINDAMYCIN 600MG / 50ML 50 ML IV SCH ×2 (05:37→14:41)
[2022-01-12] MEDS: ENOXAPARIN SOD INJ 40 MG/0.4 ML SYR SC SCH ×2 (09:00→09:22)
[2022-01-12] MEDS: MULTIVITAMINS/MINERALS TAB PO SCH (09:22)
[2022-01-12] MEDS: FOLIC ACID 1 MG TAB PO SCH (09:22)
[2022-01-12] MEDS: THIAMINE HCL 100 MG TAB PO SCH (09:22)
[2022-01-12] MEDS: INSULIN GLARGINE 100 UNITS/ML VIAL SQ SCH ×2 (09:35→21:15)
[2022-01-12] MEDS: ACETAMINOPHEN 1000 MG/100 ML IV PRN ×2 (12:50→14:38)
[2022-01-12] MEDS ORDERED: MAGNESIUM SULFATE 2GM/50ML 50 ML IV ONE (13:30)
[2022-01-12] MEDS ORDERED: ACETAMINOPHEN 1000 MG/100 ML IV SCH (18:00)
[2022-01-12] MEDS: IBUPROFEN 800MG/ 200ML 200 ML IV PRN (18:39)
[2022-01-12] MEDS: DEXMEDETOMIDINE 400MCG/NS100ML 100 ML IV PRN (23:11)
[2022-01-13] VITALS (23 sets, daily range): BP systolic 101–144; BP diastolic 60–96
[2022-01-13] MEDS: PROPOFOL IV EMULSION 10MG/ML 100 ML IV SCH ×7 (01:30→23:21)
[2022-01-13] MEDS: FAMOTIDINE 20 MG/2 ML VIAL IV SCH ×2 (04:42→16:35)
[2022-01-13 04:59] LABS: BASOPHILS # (AUTO) 0.1 (0.0-0.1); BASOPHILS % 1.6 % (0.0-1.0); EOSINOPHILS # (AUTO) 0.4 (0.0-0.4); EOSINOPHILS % 4.7 % (0.0-6.0); HEMATOCRIT 24.1 % (38.2-49.6); HEMOGLOBIN 7.5 g/dL (14.0-18.0); LYMPHOCYTES # (AUTO) 1.7 (1.0-3.2); LYMPHOCYTES % 20.6 % (18.0-39.1); MEAN CORPUSCULAR HEMOGLOBIN 31.3 pg (28-32); MEAN CORPUSCULAR HGB CONC 31.1 g/dL (31-35); MEAN CORPUSCULAR VOLUME 100.4 fL (81-99); MONOCYTES # (AUTO) 0.9 (0.2-0.8); MONOCYTES % 11.3 % (4.4-11.3); NEUTROPHILS # (AUTO) 4.9 (2.1-6.9); NEUTROPHILS % 61.1 % (38.7-80.0); PLATELET COUNT 478 x10e3/uL (140-360); RED CELL DISTRIBUTION WIDTH 12.9 % (11.7-14.4)
[2022-01-13 05:23] LABS: ALBUMIN 2.1 g/dL (3.5-5.0); ALBUMIN/GLOBULIN RATIO 0.4 (0.8-2.0); ANION GAP 12.7 mmol/L (8-16); CALCIUM 8.6 mg/dL (8.4-10.2); CREATININE, SERUM 0.77 mg/dL (0.72-1.25); POTASSIUM 3.7 mmol/L (3.5-5.1)
[2022-01-13] MEDS ORDERED: LEVALBUTEROL HCL SOLN NEBU 0.63 MG/3 ML NEB INH PRN (09:00)
[2022-01-13] MEDS ORDERED: FUROSEMIDE INJ 10 MG/ML 4 ML VIAL IV ONE (09:00)
[2022-01-13] MEDS: ENOXAPARIN SOD INJ 40 MG/0.4 ML SYR SC SCH (09:06)
[2022-01-13] MEDS: FOLIC ACID 1 MG TAB PO SCH (09:06)
[2022-01-13] MEDS: THIAMINE HCL 100 MG TAB PO SCH (09:06)
[2022-01-13] MEDS: MULTIVITAMINS/MINERALS TAB PO SCH (09:06)
[2022-01-13] MEDS: INSULIN GLARGINE 100 UNITS/ML VIAL SQ SCH ×2 (09:16→20:29)
[2022-01-13] MEDS: DEXMEDETOMIDINE 400MCG/NS100ML 100 ML IV PRN ×2 (14:13→19:34)
[2022-01-13] MEDS ORDERED: IOPAMIDOL 370 MG/ML 100 ML INFUS..BTL INJ ONE (14:24)
[2022-01-13] MEDS: INSULIN REGULAR, HUMAN 3ML VL 100 UNIT in SODIUM CHLORIDE 0.9% 99 ML IV SCH ×2 (19:15)
[2022-01-13] MEDS: IBUPROFEN 800MG/ 200ML 200 ML IV PRN (19:24)
[2022-01-14] VITALS (25 sets, daily range): BP systolic 98–131; BP diastolic 63–90
[2022-01-14] MEDS: INSULIN REGULAR, HUMAN 3ML VL 100 UNIT in SODIUM CHLORIDE 0.9% 99 ML IV SCH ×4 (00:22→04:19)
[2022-01-14] MEDS: DEXMEDETOMIDINE 100 ML IV PRN (01:01)
[2022-01-14] MEDS: PROPOFOL IV EMULSION 10MG/ML 100 ML IV SCH ×6 (01:49→20:00)
[2022-01-14] MEDS: FAMOTIDINE 20 MG/2 ML VIAL IV SCH ×2 (04:24→15:38)
[2022-01-14 05:03] LABS: BASOPHILS # (AUTO) 0.1 (0.0-0.1); BASOPHILS % 1.4 % (0.0-1.0); EOSINOPHILS # (AUTO) 0.3 (0.0-0.4); EOSINOPHILS % 2.8 % (0.0-6.0); HEMATOCRIT 27.9 % (38.2-49.6); HEMOGLOBIN 8.8 g/dL (14.0-18.0); LYMPHOCYTES # (AUTO) 0.9 (1.0-3.2); LYMPHOCYTES % 9.9 % (18.0-39.1); MEAN CORPUSCULAR HEMOGLOBIN 31.5 pg (28-32); MEAN CORPUSCULAR HGB CONC 31.5 g/dL (31-35); MONOCYTES # (AUTO) 0.8 (0.2-0.8); MONOCYTES % 8.8 % (4.4-11.3); NEUTROPHILS % 76.5 % (38.7-80.0); PLATELET COUNT 464 x10e3/uL (140-360); RED BLOOD COUNT 2.79 x10e6/uL (4.3-5.7); RED CELL DISTRIBUTION WIDTH 12.9 % (11.7-14.4)
[2022-01-14 05:23] LABS: ALBUMIN 2.3 g/dL (3.5-5.0); ALBUMIN/GLOBULIN RATIO 0.4 (0.8-2.0); ANION GAP 14.9 mmol/L (8-16); CALCIUM 8.8 mg/dL (8.4-10.2); CREATININE, SERUM 0.75 mg/dL (0.72-1.25); POTASSIUM 3.9 mmol/L (3.5-5.1)
[2022-01-14] MEDS: ACETAMINOPHEN 325 MG TAB PO PRN (05:33)
[2022-01-14] MEDS: THIAMINE HCL 100 MG TAB PO SCH (08:12)
[2022-01-14] MEDS: ENOXAPARIN SOD INJ 40 MG/0.4 ML SYR SC SCH (08:12)
[2022-01-14] MEDS: FOLIC ACID 1 MG TAB PO SCH (08:12)
[2022-01-14] MEDS: MULTIVITAMINS/MINERALS TAB PO SCH (08:12)
[2022-01-14] MEDS: INSULIN GLARGINE 100 UNITS/ML VIAL SQ SCH ×2 (08:21→21:00)
[2022-01-14] MEDS: CEFTRIAXONE 2 GM in SODIUM CHLORIDE 0.9% 100 ML IV SCH (11:21)
[2022-01-14] MEDS: HYDROCODONE/APAP 10MG-325MG TAB PO PRN (12:31)
[2022-01-14] MEDS: LORAZEPAM INJ 2 MG/ML VIAL IV PRN (13:32)
[2022-01-14] MEDS ORDERED: PROPOFOL IV EMULSION 10MG/ML 100 ML ONE (15:44)
[2022-01-14] MEDS ORDERED: ACETAMINOPHEN 1000 MG/100 ML IV PRN ×2 (16:15)
[2022-01-15] VITALS (24 sets, daily range): BP systolic 103–154; BP diastolic 58–91
[2022-01-15] MEDS: PROPOFOL IV EMULSION 10MG/ML 100 ML IV SCH ×6 (01:32→23:56)
[2022-01-15] MEDS: FAMOTIDINE 20 MG/2 ML VIAL IV SCH ×2 (03:00→16:23)
[2022-01-15] MEDS: DEXMEDETOMIDINE 100 ML IV PRN ×3 (03:00→21:30)
[2022-01-15 05:05] LABS: BASOPHILS # (AUTO) 0.1 (0.0-0.1); EOSINOPHILS # (AUTO) 0.2 (0.0-0.4); EOSINOPHILS % 2.5 % (0.0-6.0); HEMATOCRIT 24.6 % (38.2-49.6); HEMOGLOBIN 7.7 g/dL (14.0-18.0); LYMPHOCYTES # (AUTO) 1.2 (1.0-3.2); LYMPHOCYTES % 20.1 % (18.0-39.1); MEAN CORPUSCULAR HGB CONC 31.3 g/dL (31-35); MEAN CORPUSCULAR VOLUME 99.2 fL (81-99); MONOCYTES # (AUTO) 0.8 (0.2-0.8); NEUTROPHILS # (AUTO) 3.8 (2.1-6.9); NEUTROPHILS % 61.7 % (38.7-80.0); PLATELET COUNT 417 x10e3/uL (140-360); RED BLOOD COUNT 2.48 x10e6/uL (4.3-5.7); RED CELL DISTRIBUTION WIDTH 12.9 % (11.7-14.4)
[2022-01-15 05:10] LABS: INR 1.12; PROTHROMBIN TIME 15.4 seconds (11.9-14.5)
[2022-01-15 05:11] LABS: PARTIAL THROMBOPLASTIN TIME 29.8 seconds (23.8-35.5)
[2022-01-15 05:30] LABS: ALBUMIN 2.2 g/dL (3.5-5.0); ALBUMIN/GLOBULIN RATIO 0.4 (0.8-2.0); ANION GAP 15.4 mmol/L (8-16); CALCIUM 8.6 mg/dL (8.4-10.2); CREATININE, SERUM 0.71 mg/dL (0.72-1.25); POTASSIUM 4.4 mmol/L (3.5-5.1)
[2022-01-15] MEDS: THIAMINE HCL 100 MG TAB PO SCH (07:44)
[2022-01-15] MEDS: MULTIVITAMINS/MINERALS TAB PO SCH (07:44)
[2022-01-15] MEDS: ENOXAPARIN SOD INJ 40 MG/0.4 ML SYR SC SCH (07:44)
[2022-01-15] MEDS: FOLIC ACID 1 MG TAB PO SCH (07:45)
[2022-01-15] MEDS ORDERED: Morphine 2mg Syringe 2 MG/ML SYR IV ONE (08:15)
[2022-01-15] MEDS: CEFTRIAXONE 2 GM in SODIUM CHLORIDE 0.9% 100 ML IV SCH (11:34)
[2022-01-15] MEDS ORDERED: Morphine 4mg Syringe 4 MG/ML INJ IV ONE (11:45)
[2022-01-15] MEDS ORDERED: LIDOCAINE HCL 1% LOCAL INJ 20 ML VIAL ONE (12:56)
[2022-01-15] MEDS: METOCLOPRAMIDE HCL 10 MG/2ML VIAL IV SCH (17:29)
[2022-01-16] VITALS (28 sets, daily range): BP systolic 86–165; BP diastolic 48–133
[2022-01-16] MEDS: INSULIN REGULAR, HUMAN 3ML VL 100 UNIT in SODIUM CHLORIDE 0.9% 99 ML IV SCH ×10 (00:13→16:31)
[2022-01-16] MEDS: METOCLOPRAMIDE HCL 10 MG/2ML VIAL IV SCH ×4 (00:14→18:19)
[2022-01-16] MEDS: FAMOTIDINE 20 MG/2 ML VIAL IV SCH ×2 (04:15→16:38)
[2022-01-16 05:42] LABS: BASOPHILS # (AUTO) 0.1 (0.0-0.1); BASOPHILS % 1.2 % (0.0-1.0); EOSINOPHILS # (AUTO) 0.2 (0.0-0.4); EOSINOPHILS % 2.5 % (0.0-6.0); HEMATOCRIT 28.3 % (38.2-49.6); LYMPHOCYTES # (AUTO) 1.6 (1.0-3.2); LYMPHOCYTES % 27.6 % (18.0-39.1); MEAN CORPUSCULAR HEMOGLOBIN 31.8 pg (28-32); MEAN CORPUSCULAR HGB CONC 32.2 g/dL (31-35); MONOCYTES # (AUTO) 0.9 (0.2-0.8); MONOCYTES % 15.5 % (4.4-11.3); NEUTROPHILS # (AUTO) 3.1 (2.1-6.9); NEUTROPHILS % 52.5 % (38.7-80.0); PLATELET COUNT 360 x10e3/uL (140-360); RED BLOOD COUNT 2.86 x10e6/uL (4.3-5.7); RED CELL DISTRIBUTION WIDTH 12.5 % (11.7-14.4)
[2022-01-16 05:44] LABS: ALBUMIN 2.2 g/dL (3.5-5.0); ALBUMIN/GLOBULIN RATIO 0.4 (0.8-2.0); CALCIUM 8.7 mg/dL (8.4-10.2); CREATININE, SERUM 0.66 mg/dL (0.72-1.25)
[2022-01-16 05:45] LABS: HEMOGLOBIN 9.1 g/dL (14.0-18.0)
[2022-01-16] MEDS: HYDROCODONE/APAP 10MG-325MG TAB PO PRN ×4 (05:48→17:06)
[2022-01-16] MEDS: MULTIVITAMINS/MINERALS TAB PO SCH (08:48)
[2022-01-16] MEDS: THIAMINE HCL 100 MG TAB PO SCH (08:48)
[2022-01-16] MEDS: FOLIC ACID 1 MG TAB PO SCH (08:48)
[2022-01-16] MEDS: ENOXAPARIN SOD INJ 40 MG/0.4 ML SYR SC SCH (08:48)
[2022-01-16] MEDS: INSULIN GLARGINE 100 UNITS/ML VIAL SQ SCH ×2 (08:49→21:29)
[2022-01-16] MEDS: CEFTRIAXONE 2 GM in SODIUM CHLORIDE 0.9% 100 ML IV SCH (12:00)
[2022-01-16] MEDS: DEXMEDETOMIDINE 100 ML IV PRN (12:15)
[2022-01-16] MEDS ORDERED: SODIUM CHLORIDE 0.9% 100 ML ONE (17:53)
[2022-01-17] VITALS (27 sets, daily range): BP systolic 83–148; BP diastolic 55–106
[2022-01-17] MEDS: INSULIN REGULAR, HUMAN 3ML VL 100 UNIT in SODIUM CHLORIDE 0.9% 99 ML IV SCH ×10 (00:30→15:31)
[2022-01-17] MEDS: METOCLOPRAMIDE HCL 10 MG/2ML VIAL IV SCH ×4 (00:32→18:00)
[2022-01-17] MEDS: DEXMEDETOMIDINE 100 ML IV PRN ×3 (00:41→19:00)
[2022-01-17] MEDS: FAMOTIDINE 20 MG/2 ML VIAL IV SCH ×2 (04:07→16:49)
[2022-01-17 06:17] LABS: BASOPHILS % 0.5 % (0.0-1.0); EOSINOPHILS # (AUTO) 0.2 (0.0-0.4); EOSINOPHILS % 2.7 % (0.0-6.0); HEMATOCRIT 25.2 % (38.2-49.6); HEMOGLOBIN 8.1 g/dL (14.0-18.0); LYMPHOCYTES # (AUTO) 1.5 (1.0-3.2); LYMPHOCYTES % 18.9 % (18.0-39.1); MEAN CORPUSCULAR HEMOGLOBIN 30.9 pg (28-32); MEAN CORPUSCULAR HGB CONC 32.1 g/dL (31-35); MEAN CORPUSCULAR VOLUME 96.2 fL (81-99); MONOCYTES # (AUTO) 0.9 (0.2-0.8); NEUTROPHILS # (AUTO) 5.2 (2.1-6.9); NEUTROPHILS % 66.4 % (38.7-80.0); PLATELET COUNT 366 x10e3/uL (140-360); RED BLOOD COUNT 2.62 x10e6/uL (4.3-5.7); RED CELL DISTRIBUTION WIDTH 12.4 % (11.7-14.4)
[2022-01-17 06:48] LABS: ALBUMIN 2.4 g/dL (3.5-5.0); ALBUMIN/GLOBULIN RATIO 0.5 (0.8-2.0); ANION GAP 12.9 mmol/L (8-16); CALCIUM 8.8 mg/dL (8.4-10.2); CREATININE, SERUM 0.66 mg/dL (0.72-1.25); POTASSIUM 3.9 mmol/L (3.5-5.1)
[2022-01-17] MEDS: FOLIC ACID 1 MG TAB PO SCH (08:18)
[2022-01-17] MEDS: MULTIVITAMINS/MINERALS TAB PO SCH (08:18)
[2022-01-17] MEDS: ENOXAPARIN SOD INJ 40 MG/0.4 ML SYR SC SCH (08:19)
[2022-01-17] MEDS: THIAMINE HCL 100 MG TAB PO SCH (08:19)
[2022-01-17] MEDS: INSULIN GLARGINE 100 UNITS/ML VIAL SQ SCH ×2 (08:23→21:20)
[2022-01-17] MEDS: HYDROCODONE/APAP 10MG-325MG TAB PO PRN ×3 (11:05→18:22)
[2022-01-17] MEDS: CEFTRIAXONE 2 GM in SODIUM CHLORIDE 0.9% 100 ML IV SCH (12:00)
[2022-01-17] MEDS: PROPOFOL IV EMULSION 10MG/ML 100 ML IV SCH (15:45)
[2022-01-18] VITALS (27 sets, daily range): BP systolic 81–154; BP diastolic 70–139
[2022-01-18] MEDS: METOCLOPRAMIDE HCL 10 MG/2ML VIAL IV SCH ×4 (00:45→18:02)
[2022-01-18] MEDS: FAMOTIDINE 20 MG/2 ML VIAL IV SCH ×2 (04:47→18:02)
[2022-01-18 06:09] LABS: BASOPHILS # (AUTO) 0.1 (0.0-0.1); BASOPHILS % 0.9 % (0.0-1.0); EOSINOPHILS # (AUTO) 0.4 (0.0-0.4); EOSINOPHILS % 5.8 % (0.0-6.0); HEMATOCRIT 25.9 % (38.2-49.6); HEMOGLOBIN 8.3 g/dL (14.0-18.0); LYMPHOCYTES # (AUTO) 1.5 (1.0-3.2); LYMPHOCYTES % 21.6 % (18.0-39.1); MEAN CORPUSCULAR HEMOGLOBIN 30.9 pg (28-32); MEAN CORPUSCULAR VOLUME 96.3 fL (81-99); MONOCYTES # (AUTO) 0.8 (0.2-0.8); MONOCYTES % 10.9 % (4.4-11.3); NEUTROPHILS # (AUTO) 4.2 (2.1-6.9); NEUTROPHILS % 60.2 % (38.7-80.0); PLATELET COUNT 347 x10e3/uL (140-360); RED BLOOD COUNT 2.69 x10e6/uL (4.3-5.7); RED CELL DISTRIBUTION WIDTH 12.4 % (11.7-14.4)
[2022-01-18 06:26] LABS: ALBUMIN 2.4 g/dL (3.5-5.0); ALBUMIN/GLOBULIN RATIO 0.4 (0.8-2.0); ANION GAP 11.7 mmol/L (8-16); CALCIUM 8.8 mg/dL (8.4-10.2); CREATININE, SERUM 0.6 mg/dL (0.72-1.25); POTASSIUM 3.7 mmol/L (3.5-5.1)
[2022-01-18] MEDS: THIAMINE HCL 100 MG TAB PO SCH (09:39)
[2022-01-18] MEDS: MULTIVITAMINS/MINERALS TAB PO SCH (09:39)
[2022-01-18] MEDS: ENOXAPARIN SOD INJ 40 MG/0.4 ML SYR SC SCH (09:39)
[2022-01-18] MEDS: FOLIC ACID 1 MG TAB PO SCH (09:39)
[2022-01-18] MEDS: INSULIN GLARGINE 100 UNITS/ML VIAL SQ SCH ×2 (10:15→21:50)
[2022-01-18] MEDS: CEFTRIAXONE 2 GM in SODIUM CHLORIDE 0.9% 100 ML IV SCH (12:30)
[2022-01-18] MEDS: ACETAMINOPHEN 325 MG TAB PO PRN (20:39)
[2022-01-18] MEDS: DEXMEDETOMIDINE 100 ML IV PRN (22:57)
[2022-01-19] VITALS (29 sets, daily range): BP systolic 78–151; BP diastolic 46–109
[2022-01-19] MEDS: METOCLOPRAMIDE HCL 10 MG/2ML VIAL IV SCH ×5 (01:08→23:50)
[2022-01-19] MEDS: FAMOTIDINE 20 MG/2 ML VIAL IV SCH ×2 (04:40→12:38)
[2022-01-19 06:13] LABS: ALBUMIN 2.2 g/dL (3.5-5.0); ALBUMIN/GLOBULIN RATIO 0.4 (0.8-2.0); ANION GAP 11.9 mmol/L (8-16); CALCIUM 8.5 mg/dL (8.4-10.2); CREATININE, SERUM 0.55 mg/dL (0.72-1.25); POTASSIUM 3.9 mmol/L (3.5-5.1)
[2022-01-19 06:22] LABS: BASOPHILS # (AUTO) 0.1 (0.0-0.1); BASOPHILS % 0.6 % (0.0-1.0); EOSINOPHILS # (AUTO) 0.6 (0.0-0.4); EOSINOPHILS % 7.5 % (0.0-6.0); HEMATOCRIT 25.5 % (38.2-49.6); HEMOGLOBIN 8.2 g/dL (14.0-18.0); LYMPHOCYTES # (AUTO) 1.7 (1.0-3.2); LYMPHOCYTES % 20.4 % (18.0-39.1); MEAN CORPUSCULAR HEMOGLOBIN 30.9 pg (28-32); MEAN CORPUSCULAR HGB CONC 32.2 g/dL (31-35); MEAN CORPUSCULAR VOLUME 96.2 fL (81-99); MONOCYTES # (AUTO) 0.8 (0.2-0.8); MONOCYTES % 9.4 % (4.4-11.3); NEUTROPHILS # (AUTO) 5.1 (2.1-6.9); NEUTROPHILS % 61.7 % (38.7-80.0); PLATELET COUNT 366 x10e3/uL (140-360); RED BLOOD COUNT 2.65 x10e6/uL (4.3-5.7); RED CELL DISTRIBUTION WIDTH 12.3 % (11.7-14.4)
[2022-01-19] MEDS: DEXMEDETOMIDINE 100 ML IV PRN ×2 (07:25→17:47)
[2022-01-19] MEDS: FOLIC ACID 1 MG TAB PO SCH (08:32)
[2022-01-19] MEDS: THIAMINE HCL 100 MG TAB PO SCH (08:47)
[2022-01-19] MEDS: MULTIVITAMINS/MINERALS TAB PO SCH (08:47)
[2022-01-19] MEDS: ENOXAPARIN SOD INJ 40 MG/0.4 ML SYR SC SCH (08:47)
[2022-01-19] MEDS: INSULIN GLARGINE 100 UNITS/ML VIAL SQ SCH ×2 (08:50→21:42)
[2022-01-19] MEDS: ACETAMINOPHEN 325 MG TAB PO PRN ×2 (10:03→16:22)
[2022-01-19] MEDS: CEFTRIAXONE 2 GM in SODIUM CHLORIDE 0.9% 100 ML IV SCH (12:05)
[2022-01-19] MEDS ORDERED: LIDOCAINE 4% PATCH TP ONE (13:00)
[2022-01-19] MEDS: LORAZEPAM INJ 2 MG/ML VIAL IV PRN ×2 (16:15→23:49)
[2022-01-19] MEDS: INSULIN REGULAR, HUMAN 3ML VL 100 UNIT in SODIUM CHLORIDE 0.9% 99 ML IV SCH ×4 (18:40→20:25)
[2022-01-20] VITALS (33 sets, daily range): BP systolic 87–156; BP diastolic 47–100
[2022-01-20] MEDS: FAMOTIDINE 20 MG/2 ML VIAL IV SCH (04:09)
[2022-01-20] MEDS: INSULIN REGULAR, HUMAN 3ML VL 100 UNIT in SODIUM CHLORIDE 0.9% 99 ML IV SCH ×4 (04:36→20:22)
[2022-01-20 05:01] LABS: BASOPHILS # (AUTO) 0.1 (0.0-0.1); BASOPHILS % 0.6 % (0.0-1.0); EOSINOPHILS # (AUTO) 0.3 (0.0-0.4); EOSINOPHILS % 3.3 % (0.0-6.0); HEMATOCRIT 25.6 % (38.2-49.6); HEMOGLOBIN 8.2 g/dL (14.0-18.0); LYMPHOCYTES # (AUTO) 1.4 (1.0-3.2); LYMPHOCYTES % 17.4 % (18.0-39.1); MEAN CORPUSCULAR HEMOGLOBIN 30.6 pg (28-32); MEAN CORPUSCULAR VOLUME 95.5 fL (81-99); MONOCYTES # (AUTO) 0.8 (0.2-0.8); MONOCYTES % 9.5 % (4.4-11.3); NEUTROPHILS # (AUTO) 5.6 (2.1-6.9); NEUTROPHILS % 68.3 % (38.7-80.0); PLATELET COUNT 343 x10e3/uL (140-360); RED BLOOD COUNT 2.68 x10e6/uL (4.3-5.7); RED CELL DISTRIBUTION WIDTH 12.8 % (11.7-14.4)
[2022-01-20 05:29] LABS: ALBUMIN 2.3 g/dL (3.5-5.0); ALBUMIN/GLOBULIN RATIO 0.4 (0.8-2.0); ANION GAP 12.8 mmol/L (8-16); CALCIUM 8.9 mg/dL (8.4-10.2); CREATININE, SERUM 0.65 mg/dL (0.72-1.25); POTASSIUM 3.8 mmol/L (3.5-5.1)
[2022-01-20] MEDS: METOCLOPRAMIDE HCL 10 MG/2ML VIAL IV SCH ×3 (05:49→19:04)
[2022-01-20] MEDS: DEXMEDETOMIDINE 100 ML IV PRN (07:09)
[2022-01-20] MEDS: ENOXAPARIN SOD INJ 40 MG/0.4 ML SYR SC SCH (10:22)
[2022-01-20] MEDS: INSULIN GLARGINE 100 UNITS/ML VIAL SQ SCH ×2 (10:22→21:16)
[2022-01-20] MEDS: LIDOCAINE 4% PATCH TP SCH (10:22)
[2022-01-20] MEDS: CEFTRIAXONE 2 GM in SODIUM CHLORIDE 0.9% 100 ML IV SCH (12:37)
[2022-01-20] MEDS: LORAZEPAM INJ 2 MG/ML VIAL IV PRN (19:55)
[2022-01-20] MEDS: ACETAMINOPHEN 325 MG/10 ML UDC NG PRN (19:56)
[2022-01-20] MEDS ORDERED: ACETAMINOPHEN 325 MG/10 ML UDC ONE (19:59)
[2022-01-21] VITALS (29 sets, daily range): BP systolic 65–160; BP diastolic 51–121
[2022-01-21] MEDS: METOCLOPRAMIDE HCL 10 MG/2ML VIAL IV SCH ×4 (00:23→17:59)
[2022-01-21] MEDS: INSULIN REGULAR, HUMAN 3ML VL 100 UNIT in SODIUM CHLORIDE 0.9% 99 ML IV SCH ×2 (00:29)
[2022-01-21] MEDS: DEXMEDETOMIDINE 100 ML IV PRN ×2 (06:16→23:00)
[2022-01-21] MEDS: LIDOCAINE 4% PATCH TP SCH (09:11)
[2022-01-21] MEDS: ENOXAPARIN SOD INJ 40 MG/0.4 ML SYR SC SCH (09:11)
[2022-01-21] MEDS: INSULIN GLARGINE 100 UNITS/ML VIAL SQ SCH ×2 (09:25→20:16)
[2022-01-21] MEDS: CEFTRIAXONE 2 GM in SODIUM CHLORIDE 0.9% 100 ML IV SCH (12:59)
[2022-01-21] MEDS: ACETAMINOPHEN 325 MG/10 ML UDC NG PRN ×2 (14:03→21:29)
[2022-01-21] MEDS: LORAZEPAM INJ 2 MG/ML VIAL IV PRN (20:00)
[2022-01-21] MEDS: TRAZODONE HCL 50 MG TAB PO PRN (21:52)
[2022-01-22] VITALS (25 sets, daily range): BP systolic 85–163; BP diastolic 48–91
[2022-01-22] MEDS: METOCLOPRAMIDE HCL 10 MG/2ML VIAL IV SCH ×4 (00:17→17:16)
[2022-01-22 04:51] LABS: BASOPHILS # (AUTO) 0.1 (0.0-0.1); BASOPHILS % 0.6 % (0.0-1.0); EOSINOPHILS # (AUTO) 0.8 (0.0-0.4); EOSINOPHILS % 8.6 % (0.0-6.0); HEMOGLOBIN 8.2 g/dL (14.0-18.0); LYMPHOCYTES # (AUTO) 2.1 (1.0-3.2); LYMPHOCYTES % 24.4 % (18.0-39.1); MEAN CORPUSCULAR HEMOGLOBIN 30.4 pg (28-32); MEAN CORPUSCULAR HGB CONC 31.5 g/dL (31-35); MEAN CORPUSCULAR VOLUME 96.3 fL (81-99); MONOCYTES # (AUTO) 1.2 (0.2-0.8); MONOCYTES % 13.5 % (4.4-11.3); NEUTROPHILS # (AUTO) 4.6 (2.1-6.9); NEUTROPHILS % 52.3 % (38.7-80.0); PLATELET COUNT 343 x10e3/uL (140-360); RED CELL DISTRIBUTION WIDTH 13.1 % (11.7-14.4)
[2022-01-22 05:12] LABS: ALBUMIN 2.3 g/dL (3.5-5.0); ALBUMIN/GLOBULIN RATIO 0.4 (0.8-2.0); ANION GAP 13.1 mmol/L (8-16); CALCIUM 8.7 mg/dL (8.4-10.2); CREATININE, SERUM 0.62 mg/dL (0.72-1.25); POTASSIUM 4.1 mmol/L (3.5-5.1)
[2022-01-22] MEDS: INSULIN REGULAR, HUMAN 3ML VL 100 UNIT in SODIUM CHLORIDE 0.9% 99 ML IV SCH ×2 (05:46)
[2022-01-22] MEDS: LIDOCAINE 4% PATCH TP SCH (09:55)
[2022-01-22] MEDS: ENOXAPARIN SOD INJ 40 MG/0.4 ML SYR SC SCH (09:55)
[2022-01-22] MEDS: INSULIN GLARGINE 100 UNITS/ML VIAL SQ SCH ×2 (09:55→21:31)
[2022-01-22] MEDS: CEFTRIAXONE 2 GM in SODIUM CHLORIDE 0.9% 100 ML IV SCH (12:53)
[2022-01-22] MEDS: ACETAMINOPHEN 325 MG/10 ML UDC NG PRN (14:45)
[2022-01-22 15:17] LABS: BASOPHILS # (AUTO) 0.1 (0.0-0.1); BASOPHILS % 0.6 % (0.0-1.0); EOSINOPHILS # (AUTO) 0.5 (0.0-0.4); EOSINOPHILS % 5.8 % (0.0-6.0); HEMATOCRIT 25.9 % (38.2-49.6); HEMOGLOBIN 8.4 g/dL (14.0-18.0); LYMPHOCYTES # (AUTO) 1.2 (1.0-3.2); LYMPHOCYTES % 15.3 % (18.0-39.1); MEAN CORPUSCULAR HEMOGLOBIN 30.2 pg (28-32); MEAN CORPUSCULAR HGB CONC 32.4 g/dL (31-35); MEAN CORPUSCULAR VOLUME 93.2 fL (81-99); MONOCYTES # (AUTO) 0.4 (0.2-0.8); MONOCYTES % 5.1 % (4.4-11.3); NEUTROPHILS # (AUTO) 5.7 (2.1-6.9); NEUTROPHILS % 72.8 % (38.7-80.0); PLATELET COUNT 327 x10e3/uL (140-360); RED BLOOD COUNT 2.78 x10e6/uL (4.3-5.7); RED CELL DISTRIBUTION WIDTH 12.9 % (11.7-14.4)
[2022-01-22 15:41] LABS: ALBUMIN 2.5 g/dL (3.5-5.0); BILIRUBIN,DIRECT 0.4 mg/dL (0.0-0.5)
[2022-01-22] MEDS ORDERED: IBUPROFEN 800MG/ 200ML 200 ML IV PRN (16:30)
[2022-01-22] MEDS: Vancomycin IV 1 GM in SODIUM CHLORIDE 0.9% 250ML 250 ML IV SCH (17:16)
[2022-01-22] MEDS: TRAZODONE HCL 50 MG TAB PO PRN (21:17)
[2022-01-22] MEDS: CEFEPIME 2 GM in SODIUM CHLORIDE 0.9% 100 ML IV SCH (21:27)
[2022-01-23] VITALS (26 sets, daily range): BP systolic 98–146; BP diastolic 57–96
[2022-01-23] MEDS: METOCLOPRAMIDE HCL 10 MG/2ML VIAL IV SCH ×5 (00:18→23:23)
[2022-01-23] MEDS: DEXMEDETOMIDINE 100 ML IV PRN ×2 (00:19→23:24)
[2022-01-23] MEDS: Vancomycin IV 1 GM in SODIUM CHLORIDE 0.9% 250ML 250 ML IV SCH ×2 (04:25→16:00)
[2022-01-23 05:00] LABS: BASOPHILS # (AUTO) 0.1 (0.0-0.1); BASOPHILS % 0.9 % (0.0-1.0); EOSINOPHILS # (AUTO) 0.7 (0.0-0.4); EOSINOPHILS % 9.5 % (0.0-6.0); HEMATOCRIT 25.2 % (38.2-49.6); HEMOGLOBIN 8.2 g/dL (14.0-18.0); LYMPHOCYTES # (AUTO) 1.6 (1.0-3.2); LYMPHOCYTES % 22.5 % (18.0-39.1); MEAN CORPUSCULAR HEMOGLOBIN 30.7 pg (28-32); MEAN CORPUSCULAR HGB CONC 32.5 g/dL (31-35); MEAN CORPUSCULAR VOLUME 94.4 fL (81-99); MONOCYTES # (AUTO) 0.9 (0.2-0.8); MONOCYTES % 12.3 % (4.4-11.3); NEUTROPHILS # (AUTO) 3.8 (2.1-6.9); NEUTROPHILS % 54.2 % (38.7-80.0); PLATELET COUNT 324 x10e3/uL (140-360); RED BLOOD COUNT 2.67 x10e6/uL (4.3-5.7)
[2022-01-23 05:25] LABS: ALBUMIN 2.4 g/dL (3.5-5.0); ALBUMIN/GLOBULIN RATIO 0.5 (0.8-2.0); ANION GAP 14.3 mmol/L (8-16); CALCIUM 9.1 mg/dL (8.4-10.2); CREATININE, SERUM 0.75 mg/dL (0.72-1.25); POTASSIUM 4.3 mmol/L (3.5-5.1)
[2022-01-23] MEDS: LIDOCAINE 4% PATCH TP SCH (08:17)
[2022-01-23] MEDS: CEFEPIME 2 GM in SODIUM CHLORIDE 0.9% 100 ML IV SCH ×2 (08:17→21:45)
[2022-01-23] MEDS: INSULIN GLARGINE 100 UNITS/ML VIAL SQ SCH ×2 (08:18→21:49)
[2022-01-23] MEDS: ENOXAPARIN SOD INJ 40 MG/0.4 ML SYR SC SCH (08:38)
[2022-01-23] MEDS: ACETAMINOPHEN 325 MG/10 ML UDC NG PRN (19:46)
[2022-01-23] MEDS: TRAZODONE HCL 50 MG TAB PO PRN (22:25)
[2022-01-24] VITALS (23 sets, daily range): BP systolic 95–148; BP diastolic 45–110
[2022-01-24] MEDS: LORAZEPAM INJ 2 MG/ML VIAL IV PRN (00:53)
[2022-01-24] MEDS: Vancomycin IV 1 GM in SODIUM CHLORIDE 0.9% 250ML 250 ML IV SCH ×2 (04:03→15:08)
[2022-01-24] MEDS: METOCLOPRAMIDE HCL 10 MG/2ML VIAL IV SCH ×4 (05:02→23:41)
[2022-01-24 05:04] LABS: BASOPHILS # (AUTO) 0.1 (0.0-0.1); BASOPHILS % 0.7 % (0.0-1.0); EOSINOPHILS # (AUTO) 0.5 (0.0-0.4); EOSINOPHILS % 7.4 % (0.0-6.0); HEMATOCRIT 24.2 % (38.2-49.6); HEMOGLOBIN 7.8 g/dL (14.0-18.0); LYMPHOCYTES # (AUTO) 1.5 (1.0-3.2); LYMPHOCYTES % 21.1 % (18.0-39.1); MEAN CORPUSCULAR HEMOGLOBIN 30.1 pg (28-32); MEAN CORPUSCULAR HGB CONC 32.2 g/dL (31-35); MEAN CORPUSCULAR VOLUME 93.4 fL (81-99); MONOCYTES # (AUTO) 0.9 (0.2-0.8); MONOCYTES % 12.7 % (4.4-11.3); NEUTROPHILS # (AUTO) 4.1 (2.1-6.9); NEUTROPHILS % 57.5 % (38.7-80.0); PLATELET COUNT 332 x10e3/uL (140-360); RED BLOOD COUNT 2.59 x10e6/uL (4.3-5.7)
[2022-01-24 05:25] LABS: ALBUMIN 2.4 g/dL (3.5-5.0); ALBUMIN/GLOBULIN RATIO 0.5 (0.8-2.0); ANION GAP 15.1 mmol/L (8-16); CALCIUM 8.6 mg/dL (8.4-10.2); CREATININE, SERUM 0.62 mg/dL (0.72-1.25); POTASSIUM 4.1 mmol/L (3.5-5.1)
[2022-01-24] MEDS: CEFEPIME 2 GM in SODIUM CHLORIDE 0.9% 100 ML IV SCH ×2 (08:40→20:27)
[2022-01-24] MEDS: LIDOCAINE 4% PATCH TP SCH (08:40)
[2022-01-24] MEDS: ENOXAPARIN SOD INJ 40 MG/0.4 ML SYR SC SCH (08:40)
[2022-01-24] MEDS: INSULIN GLARGINE 100 UNITS/ML VIAL SQ SCH ×2 (08:41→20:32)
[2022-01-24] MEDS: DEXMEDETOMIDINE 100 ML IV PRN (09:15)
[2022-01-24] MEDS ORDERED: DEXTROSE 50% SYRINGE 50 ML IV PRN (13:15)
[2022-01-24] MEDS: INSULIN REGULAR, HUMAN 100 UNIT/1 ML SQ SCH ×2 (16:10→20:32)
[2022-01-24] MEDS: ACETAMINOPHEN 325 MG/10 ML UDC NG PRN (20:33)
[2022-01-24] MEDS: TRAZODONE HCL 50 MG TAB PO PRN (22:57)
[2022-01-25] VITALS (27 sets, daily range): BP systolic 94–172; BP diastolic 59–114
[2022-01-25] MEDS: DEXMEDETOMIDINE 100 ML IV PRN (02:36)
[2022-01-25] MEDS: LORAZEPAM INJ 2 MG/ML VIAL IV PRN ×2 (03:24→20:03)
[2022-01-25] MEDS: Vancomycin IV 1 GM in SODIUM CHLORIDE 0.9% 250ML 250 ML IV SCH ×2 (03:24→15:29)
[2022-01-25 06:37] LABS: BASOPHILS % 0.8 % (0.0-1.0); EOSINOPHILS # (AUTO) 0.4 (0.0-0.4); EOSINOPHILS % 7.1 % (0.0-6.0); HEMATOCRIT 23.4 % (38.2-49.6); HEMOGLOBIN 7.5 g/dL (14.0-18.0); LYMPHOCYTES # (AUTO) 1.2 (1.0-3.2); LYMPHOCYTES % 23.3 % (18.0-39.1); MEAN CORPUSCULAR HEMOGLOBIN 30.1 pg (28-32); MEAN CORPUSCULAR HGB CONC 32.1 g/dL (31-35); MONOCYTES # (AUTO) 0.7 (0.2-0.8); MONOCYTES % 12.2 % (4.4-11.3); NEUTROPHILS % 56.2 % (38.7-80.0); PLATELET COUNT 305 x10e3/uL (140-360); RED BLOOD COUNT 2.49 x10e6/uL (4.3-5.7); RED CELL DISTRIBUTION WIDTH 13.1 % (11.7-14.4)
[2022-01-25] MEDS: METOCLOPRAMIDE HCL 10 MG/2ML VIAL IV SCH ×4 (06:37→23:37)
[2022-01-25 07:02] LABS: CALCIUM 8.6 mg/dL (8.4-10.2); CREATININE, SERUM 0.63 mg/dL (0.72-1.25)
[2022-01-25] MEDS: INSULIN REGULAR, HUMAN 100 UNIT/1 ML SQ SCH ×4 (08:28→20:04)
[2022-01-25] MEDS: INSULIN GLARGINE 100 UNITS/ML VIAL SQ SCH ×2 (08:32→20:04)
[2022-01-25] MEDS: LIDOCAINE 4% PATCH TP SCH (08:32)
[2022-01-25] MEDS: ENOXAPARIN SOD INJ 40 MG/0.4 ML SYR SC SCH (08:32)
[2022-01-25] MEDS: CEFEPIME 2 GM in SODIUM CHLORIDE 0.9% 100 ML IV SCH ×2 (09:07→20:03)
[2022-01-25] MEDS: METOPROLOL TARTRATE 50 MG TAB PO SCH (16:45)
[2022-01-25] MEDS: ACETAMINOPHEN 325 MG/10 ML UDC NG PRN (17:49)
[2022-01-25] MEDS: TRAZODONE HCL 50 MG TAB PO PRN (20:03)
[2022-01-26] VITALS (26 sets, daily range): BP systolic 107–160; BP diastolic 69–109
[2022-01-26] MEDS: ACETAMINOPHEN 325 MG/10 ML UDC NG PRN (04:00)
[2022-01-26] MEDS: METOCLOPRAMIDE HCL 10 MG/2ML VIAL IV SCH ×3 (04:43→18:00)
[2022-01-26] MEDS: Vancomycin IV 1 GM in SODIUM CHLORIDE 0.9% 250ML 250 ML IV SCH ×2 (04:43→17:33)
[2022-01-26] MEDS: INSULIN REGULAR, HUMAN 100 UNIT/1 ML SQ SCH ×4 (07:30→20:47)
[2022-01-26] MEDS: CEFEPIME 2 GM in SODIUM CHLORIDE 0.9% 100 ML IV SCH ×2 (08:39→21:02)
[2022-01-26] MEDS: METOPROLOL TARTRATE 50 MG TAB PO SCH ×2 (08:40→17:35)
[2022-01-26] MEDS: ENOXAPARIN SOD INJ 40 MG/0.4 ML SYR SC SCH (08:40)
[2022-01-26] MEDS: LIDOCAINE 4% PATCH TP SCH (08:48)
[2022-01-26] MEDS: INSULIN GLARGINE 100 UNITS/ML VIAL SQ SCH ×2 (08:50→20:47)
[2022-01-26] MEDS: LORAZEPAM INJ 2 MG/ML VIAL IV PRN (21:02)
[2022-01-26] MEDS: TRAZODONE HCL 50 MG TAB PO PRN (21:02)
[2022-01-27] VITALS (20 sets, daily range): BP systolic 114–163; BP diastolic 61–111
[2022-01-27] MEDS: LORAZEPAM INJ 2 MG/ML VIAL IV PRN (00:12)
[2022-01-27] MEDS: ACETAMINOPHEN 325 MG/10 ML UDC NG PRN ×2 (00:17→21:55)
[2022-01-27] MEDS: Vancomycin IV 1 GM in SODIUM CHLORIDE 0.9% 250ML 250 ML IV SCH ×2 (03:43→17:09)
[2022-01-27] MEDS: METOCLOPRAMIDE HCL 10 MG/2ML VIAL IV SCH ×2 (06:10)
[2022-01-27] MEDS: INSULIN REGULAR, HUMAN 100 UNIT/1 ML SQ SCH ×4 (08:59→21:00)
[2022-01-27] MEDS: INSULIN GLARGINE 100 UNITS/ML VIAL SQ SCH ×2 (09:11→22:03)
[2022-01-27 09:12] LABS: BASOPHILS # (AUTO) 0.1 (0.0-0.1); BASOPHILS % 0.9 % (0.0-1.0); EOSINOPHILS # (AUTO) 0.3 (0.0-0.4); EOSINOPHILS % 4.9 % (0.0-6.0); HEMATOCRIT 27.7 % (38.2-49.6); HEMOGLOBIN 8.7 g/dL (14.0-18.0); LYMPHOCYTES # (AUTO) 1.3 (1.0-3.2); LYMPHOCYTES % 19.3 % (18.0-39.1); MEAN CORPUSCULAR HEMOGLOBIN 30.1 pg (28-32); MEAN CORPUSCULAR HGB CONC 31.4 g/dL (31-35); MEAN CORPUSCULAR VOLUME 95.8 fL (81-99); MONOCYTES # (AUTO) 0.6 (0.2-0.8); MONOCYTES % 8.8 % (4.4-11.3); NEUTROPHILS # (AUTO) 4.4 (2.1-6.9); NEUTROPHILS % 65.7 % (38.7-80.0); PLATELET COUNT 348 x10e3/uL (140-360); RED BLOOD COUNT 2.89 x10e6/uL (4.3-5.7); RED CELL DISTRIBUTION WIDTH 13.5 % (11.7-14.4)
[2022-01-27] MEDS: CEFEPIME 2 GM in SODIUM CHLORIDE 0.9% 100 ML IV SCH ×2 (09:35→21:23)
[2022-01-27] MEDS: LIDOCAINE 4% PATCH TP SCH (09:36)
[2022-01-27] MEDS: ENOXAPARIN SOD INJ 40 MG/0.4 ML SYR SC SCH (09:36)
[2022-01-27] MEDS: METOPROLOL TARTRATE 50 MG TAB PO SCH ×2 (09:36→17:10)
[2022-01-27 09:38] LABS: BLOOD UREA NITROGEN < 5 mg/dL (7-26); CALCIUM 9.3 mg/dL (8.4-10.2); CARBON DIOXIDE 26 mmol/L (22-29); CHLORIDE 101 mmol/L (98-107); EST GLOMERULAR FILTRATION RATE 151 ML/MIN (60-); GLUCOSE 139 mg/dL (74-118); SODIUM 136 mmol/L (136-145)
[2022-01-27 09:40] LABS: BUN/CREATININE RATIO 8 (6-25)
[2022-01-27] MEDS: HYDROCODONE/APAP 5MG-325MG TAB PO PRN (17:11)
[2022-01-27] MEDS ORDERED: IOPAMIDOL 370 MG/ML 100 ML INFUS..BTL INJ ONE (19:57)
[2022-01-27] MEDS ORDERED: SODIUM CHLORIDE 0.9% 1000ML 1,000 ML IV SCH (20:00)
[2022-01-27] MEDS: TRAZODONE HCL 50 MG TAB PO PRN (21:55)
[2022-01-28] VITALS (9 sets, daily range): BP systolic 110–152; BP diastolic 70–94
[2022-01-28] MEDS: HYDROCODONE/APAP 5MG-325MG TAB PO PRN ×2 (02:59→21:45)
[2022-01-28] MEDS: Vancomycin IV 1 GM in SODIUM CHLORIDE 0.9% 250ML 250 ML IV SCH (04:25)
[2022-01-28 05:04] LABS: BASOPHILS # (AUTO) 0.1 (0.0-0.1); BASOPHILS % 0.9 % (0.0-1.0); EOSINOPHILS # (AUTO) 0.3 (0.0-0.4); EOSINOPHILS % 4.6 % (0.0-6.0); HEMOGLOBIN 8.1 g/dL (14.0-18.0); LYMPHOCYTES # (AUTO) 1.5 (1.0-3.2); LYMPHOCYTES % 21.4 % (18.0-39.1); MEAN CORPUSCULAR HEMOGLOBIN 29.7 pg (28-32); MEAN CORPUSCULAR HGB CONC 31.2 g/dL (31-35); MEAN CORPUSCULAR VOLUME 95.2 fL (81-99); MONOCYTES # (AUTO) 0.7 (0.2-0.8); NEUTROPHILS # (AUTO) 4.2 (2.1-6.9); NEUTROPHILS % 62.4 % (38.7-80.0); PLATELET COUNT 326 x10e3/uL (140-360); RED BLOOD COUNT 2.73 x10e6/uL (4.3-5.7); RED CELL DISTRIBUTION WIDTH 13.4 % (11.7-14.4)
[2022-01-28 05:38] LABS: ALANINE AMINOTRANSFERASE 13 IU/L (0-55); ALBUMIN 2.6 g/dL (3.5-5.0); ALBUMIN/GLOBULIN RATIO 0.5 (0.8-2.0); ALKALINE PHOSPHATASE 116 IU/L (40-150); ANION GAP 14.9 mmol/L (8-16); BLOOD UREA NITROGEN < 5 mg/dL (7-26); CALCIUM 9.2 mg/dL (8.4-10.2); CARBON DIOXIDE 25 mmol/L (22-29); CHLORIDE 103 mmol/L (98-107); CREATININE, SERUM 0.58 mg/dL (0.72-1.25); EST GLOMERULAR FILTRATION RATE 157 ML/MIN (60-); GLUCOSE 88 mg/dL (74-118); POTASSIUM 3.9 mmol/L (3.5-5.1); SODIUM 139 mmol/L (136-145)
[2022-01-28 05:40] LABS: BUN/CREATININE RATIO 9 (6-25)
[2022-01-28] MEDS: INSULIN REGULAR, HUMAN 100 UNIT/1 ML SQ SCH ×4 (07:30→21:00)
[2022-01-28] MEDS: INSULIN GLARGINE 100 UNITS/ML VIAL SQ SCH ×2 (09:00→21:44)
[2022-01-28] MEDS: CEFEPIME 2 GM in SODIUM CHLORIDE 0.9% 100 ML IV SCH (09:51)
[2022-01-28] MEDS: ENOXAPARIN SOD INJ 40 MG/0.4 ML SYR SC SCH (09:52)
[2022-01-28] MEDS: LIDOCAINE 4% PATCH TP SCH (09:52)
[2022-01-28] MEDS: METOPROLOL TARTRATE 50 MG TAB PO SCH ×2 (09:52→17:18)
[2022-01-28] MEDS: LORAZEPAM 0.5 MG TAB PO PRN (21:44)
[2022-01-28] MEDS: TRAZODONE HCL 50 MG TAB PO PRN (21:44)
[2022-01-29] VITALS (7 sets, daily range): BP systolic 114–141; BP diastolic 73–98
[2022-01-29] MEDS: INSULIN REGULAR, HUMAN 100 UNIT/1 ML SQ SCH ×4 (07:30→22:40)
[2022-01-29] MEDS: METOPROLOL TARTRATE 50 MG TAB PO SCH ×2 (09:00→17:45)
[2022-01-29] MEDS: INSULIN GLARGINE 100 UNITS/ML VIAL SQ SCH ×2 (10:00→22:40)
[2022-01-29] MEDS: LIDOCAINE 4% PATCH TP SCH (10:30)
[2022-01-29] MEDS ORDERED: MIDAZOLAM HCL 2 MG/2 ML VIAL ONE (12:07)
[2022-01-29] MEDS ORDERED: FENTANYL CITRATE/PF 100MCG/2 ML INJ ONE (12:07)
[2022-01-29] MEDS ORDERED: PROPOFOL IV EMULSION 10 MG/ML 20 ML VIAL ONE (12:20)
[2022-01-29] MEDS: TRAZODONE HCL 50 MG TAB PO PRN (22:40)
[2022-01-29] MEDS: LORAZEPAM 0.5 MG TAB PO PRN (22:40)
[2022-01-29] MEDS: HYDROCODONE/APAP 5MG-325MG TAB PO PRN (22:42)
[2022-01-30] VITALS (7 sets, daily range): BP systolic 115–149; BP diastolic 60–104
[2022-01-30 06:11] LABS: BASOPHILS # (AUTO) 0.1 (0.0-0.1); EOSINOPHILS # (AUTO) 0.3 (0.0-0.4); EOSINOPHILS % 4.3 % (0.0-6.0); HEMATOCRIT 27.6 % (38.2-49.6); HEMOGLOBIN 8.6 g/dL (14.0-18.0); LYMPHOCYTES # (AUTO) 1.6 (1.0-3.2); LYMPHOCYTES % 23.5 % (18.0-39.1); MEAN CORPUSCULAR HEMOGLOBIN 29.7 pg (28-32); MEAN CORPUSCULAR HGB CONC 31.2 g/dL (31-35); MEAN CORPUSCULAR VOLUME 95.2 fL (81-99); MONOCYTES # (AUTO) 0.6 (0.2-0.8); MONOCYTES % 8.9 % (4.4-11.3); NEUTROPHILS # (AUTO) 4.3 (2.1-6.9); NEUTROPHILS % 61.9 % (38.7-80.0); PLATELET COUNT 312 x10e3/uL (140-360); RED CELL DISTRIBUTION WIDTH 13.5 % (11.7-14.4)
[2022-01-30 06:22] LABS: ANION GAP 11.9 mmol/L (8-16); BLOOD UREA NITROGEN < 5 mg/dL (7-26); CALCIUM 9.1 mg/dL (8.4-10.2); CARBON DIOXIDE 28 mmol/L (22-29); CHLORIDE 101 mmol/L (98-107); CREATININE, SERUM 0.59 mg/dL (0.72-1.25); EST GLOMERULAR FILTRATION RATE 154 ML/MIN (60-); GLUCOSE 77 mg/dL (74-118); POTASSIUM 3.9 mmol/L (3.5-5.1); SODIUM 137 mmol/L (136-145)
[2022-01-30 06:30] LABS: BUN/CREATININE RATIO 8 (6-25)
[2022-01-30] MEDS: INSULIN REGULAR, HUMAN 100 UNIT/1 ML SQ SCH ×4 (07:30→21:00)
[2022-01-30] MEDS: LIDOCAINE 4% PATCH TP SCH (10:11)
[2022-01-30] MEDS: METOPROLOL TARTRATE 50 MG TAB PO SCH ×2 (10:11→17:04)
[2022-01-30] MEDS: INSULIN GLARGINE 100 UNITS/ML VIAL SQ SCH ×2 (10:22→23:36)
[2022-01-30] MEDS: HYDROCODONE/APAP 5MG-325MG TAB PO PRN (22:30)
[2022-01-30] MEDS: TRAZODONE HCL 50 MG TAB PO PRN (22:30)
[2022-01-31] VITALS (7 sets, daily range): BP systolic 125–146; BP diastolic 76–100
[2022-01-31] MEDS ORDERED: ACETAMINOPHEN 325 MG TAB PO PRN (07:15)
[2022-01-31] MEDS: INSULIN REGULAR, HUMAN 100 UNIT/1 ML SQ SCH ×4 (07:30→21:00)
[2022-01-31] MEDS: METOPROLOL TARTRATE 50 MG TAB PO SCH ×2 (10:07→16:22)
[2022-01-31] MEDS: LIDOCAINE 4% PATCH TP SCH (10:08)
[2022-01-31] MEDS: INSULIN GLARGINE 100 UNITS/ML VIAL SQ SCH ×2 (10:08→22:20)
[2022-01-31] MEDS: HYDROCODONE/APAP 5MG-325MG TAB PO PRN (16:22)
[2022-02-01] VITALS (8 sets, daily range): BP systolic 130–145; BP diastolic 78–104
[2022-02-01] MEDS: INSULIN REGULAR, HUMAN 100 UNIT/1 ML SQ SCH ×4 (07:30→21:00)
[2022-02-01] MEDS: INSULIN GLARGINE 100 UNITS/ML VIAL SQ SCH ×2 (09:00→21:00)
[2022-02-01] MEDS: LIDOCAINE 4% PATCH TP SCH (09:04)
[2022-02-01] MEDS: METOPROLOL TARTRATE 50 MG TAB PO SCH ×2 (09:04→17:00)
[2022-02-01] MEDS: LORAZEPAM 0.5 MG TAB PO PRN ×2 (15:52→22:00)
[2022-02-01] MEDS: HYDROCODONE/APAP 5MG-325MG TAB PO PRN (15:53)
[2022-02-01] MEDS: TRAZODONE HCL 50 MG TAB PO PRN (22:00)
[2022-02-02] VITALS: BP 98/63
[2022-02-02 04:00] VITALS: BP 119/69
[2022-02-02 08:00] VITALS: BP 132/89
[2022-02-02] MEDS: INSULIN REGULAR, HUMAN 100 UNIT/1 ML SQ SCH ×2 (08:00→11:30)
[2022-02-02 08:38] VITALS: BP 132/89
[2022-02-02] MEDS: INSULIN GLARGINE 100 UNITS/ML VIAL SQ SCH (09:00)
[2022-02-02] MEDS: LIDOCAINE 4% PATCH TP SCH (09:48)
[2022-02-02] MEDS: METOPROLOL TARTRATE 50 MG TAB PO SCH (09:48)
[2022-02-02] MEDS ORDERED: ACETAMINOPHEN-1 EAC4 PO (11:55)
[2022-02-02] MEDS ORDERED: METOPROLOL TART50 MG PO (11:55)
[2022-02-02] MEDS ORDERED: TRAZODONE HCL50 MG PO (11:55)
[2022-02-02] MEDS ORDERED: Lidocaine Patch TP (11:55)
[2022-02-02 14:02] VITALS: BP 132/91
[2022-02-03] MEDS ORDERED: PANTOPRAZOLE SOD 40 MG TABEC PO SCH (07:30)
== END 2022-02-02 15:20 | disposition home or self-care (01) | DRG 3 ==
LOC: ER 14:37 → ERHOLD 15:54 → ICU 16:52 → MED/SURG3 01-28 14:24
PROVIDERS: ADMIT Internal Medicine; ATTEND Internal Medicine
PROC: 02HV33Z Insertion of Infusion Device into Superior Vena Cava, Percutaneous Approach (ICD-10-PCS; principal; 2021-12-20)
PROC: B548ZZA Ultrasonography of Superior Vena Cava, Guidance (ICD-10-PCS; 2021-12-20)
PROC: 5A0935A Assistance with Respiratory Ventilation, Less than 24 Consecutive Hours, High Flow/Velocity Cannula (ICD-10-PCS; 2021-12-20)
PROC: 3E04329 Introduction of Other Anti-infective into Central Vein, Percutaneous Approach (ICD-10-PCS; 2021-12-20)
PROC: 0Y6H0Z3 Detachment at Right Lower Leg, Low, Open Approach (ICD-10-PCS; 2021-12-21)
PROC: 5A1955Z Respiratory Ventilation, Greater than 96 Consecutive Hours (ICD-10-PCS; 2021-12-21)
PROC: 02HV33Z Insertion of Infusion Device into Superior Vena Cava, Percutaneous Approach (ICD-10-PCS; 2021-12-21)
PROC: 0BH17EZ Insertion of Endotracheal Airway into Trachea, Via Natural or Artificial Opening (ICD-10-PCS; 2021-12-21)
PROC: 5A09357 Assistance with Respiratory Ventilation, Less than 24 Consecutive Hours, Continuous Positive Airway Pressure (ICD-10-PCS; 2021-12-21)
PROC: 3E043XZ Introduction of Vasopressor into Central Vein, Percutaneous Approach (ICD-10-PCS; 2021-12-21)
PROC: 5A1D70Z Performance of Urinary Filtration, Intermittent, Less than 6 Hours Per Day (ICD-10-PCS; 2021-12-21)
PROC: 5A1D70Z Performance of Urinary Filtration, Intermittent, Less than 6 Hours Per Day (ICD-10-PCS; 2021-12-22)
PROC: 02HV33Z Insertion of Infusion Device into Superior Vena Cava, Percutaneous Approach (ICD-10-PCS; 2021-12-29)
PROC: 0B113F4 Bypass Trachea to Cutaneous with Tracheostomy Device, Percutaneous Approach (ICD-10-PCS; 2022-01-01)
PROC: 0DH63UZ Insertion of Feeding Device into Stomach, Percutaneous Approach (ICD-10-PCS; 2022-01-01)
PROC: 02PY33Z Removal of Infusion Device from Great Vessel, Percutaneous Approach (ICD-10-PCS; 2022-01-14)
PROC: 02HV33Z Insertion of Infusion Device into Superior Vena Cava, Percutaneous Approach (ICD-10-PCS; 2022-01-14)
PROC: 0WJF3ZZ Inspection of Abdominal Wall, Percutaneous Approach (ICD-10-PCS; 2022-01-14)
PROC: 0DP68UZ Removal of Feeding Device from Stomach, Via Natural or Artificial Opening Endoscopic (ICD-10-PCS; 2022-01-29)
DX: A40.1 Sepsis due to streptococcus, group B (principal); R65.21 Severe sepsis with septic shock; M72.6 Necrotizing fasciitis; J80 Acute respiratory distress syndrome; G93.41 Metabolic encephalopathy; A48.0 Gas gangrene; N17.0 Acute kidney failure with tubular necrosis; J18.9 Pneumonia, unspecified organism; L03.115 Cellulitis of right lower limb; M86.8X7 Other osteomyelitis, ankle and foot; E87.1 Hypo-osmolality and hyponatremia; E66.2 Morbid (severe) obesity with alveolar hypoventilation; I82.401 Acute embolism and thrombosis of unspecified deep veins of right lower extremity; F10.231 Alcohol dependence with withdrawal delirium; E10.52 Type 1 diabetes mellitus with diabetic peripheral angiopathy with gangrene; T82.524A Displacement of infusion catheter, initial encounter; Z16.24 Resistance to multiple antibiotics; I48.0 Paroxysmal atrial fibrillation; E10.621 Type 1 diabetes mellitus with foot ulcer; E10.628 Type 1 diabetes mellitus with other skin complications; E10.610 Type 1 diabetes mellitus with diabetic neuropathic arthropathy; D69.6 Thrombocytopenia, unspecified; B95.62 Methicillin resistant Staphylococcus aureus infection as the cause of diseases classified elsewhere; E87.8 Other disorders of electrolyte and fluid balance, not elsewhere classified; E83.51 Hypocalcemia; L97.529 Non-pressure chronic ulcer of other part of left foot with unspecified severity; E83.39 Other disorders of phosphorus metabolism; K70.10 Alcoholic hepatitis without ascites; E10.65 Type 1 diabetes mellitus with hyperglycemia; K20.90 Esophagitis, unspecified without bleeding; K29.70 Gastritis, unspecified, without bleeding; Z20.822 Contact with and (suspected) exposure to COVID-19; I10 Essential (primary) hypertension; Z88.8 Allergy status to other drugs, medicaments and biological substances; D64.9 Anemia, unspecified; Z68.39 Body mass index [BMI] 39.0-39.9, adult; F41.9 Anxiety disorder, unspecified; F32.A Depression, unspecified; L27.0 Generalized skin eruption due to drugs and medicaments taken internally; Y92.230 Patient room in hospital as the place of occurrence of the external cause; T36.8X5A Adverse effect of other systemic antibiotics, initial encounter; E83.42 Hypomagnesemia; K76.9 Liver disease, unspecified; G47.00 Insomnia, unspecified; Z74.09 Other reduced mobility
CPT/HCPCS: 10160; 36415; 36569; 36600; 43239; 43246; 51700; 71045; 71260; 74018; 74177; 74230; 74470; 76705; 76770; 76942; 80048; 80053; 80061; 80076; 80202; 81001; 82550; 82553; 82805; 82948; 83036; 83605; 83735; 84100; 84295; 84436; 84443; 84479; 84484; 85025; 85610; 85730; 86021; 86039; 86160; 86225; 86705; 86706; 86850; 86900; 87040; 87071; 87186; 87205; 87340; 88304; 88307; 88311; 93005; 93306; 93971; 94003; 94660; 94799; 96360; 96372; 97139; 99251; 99285; C1713; J0330; J0692; J0696; J1170; J1450; J1644; J1650; J1815; J1817; J1940; J2001; J2020; J2060; J2150; J2185; J2250; J2270; J2543; J2765; J3010; J3370; J3411; J3475; J3480; J7030; J7040; J7050; J7121; P9047; Q9967; U0002